=== PATIENT | female | born 1945 | race Caucasian/White ===

== ENCOUNTER 2023-07-09 16:57 | Inpatient (IN) ==
--- NOTE | 2023-07-09 17:28 | Emergency Department Note ---
Impression & Plan Atrial fibrillation with rapid ventricular response, Wheezing, Acute dyspnea ED Provider Note NAME: FREDERICK RUIZ AGE: 77 SEX: F : 1945 ARRIVES VIA: Walk-In INFORMANT: Patient, ED PROVIDER(S): Marcell Zhao MD CHIEF COMPLAINT: Cough, shortness of breath MEDICAL DECISION MAKING: Patient presents with 2 weeks of associated symptoms after treatment at home who presents with worsening shortness of breath and cough. Patient did have wheezing on exam. IV was established blood was obtained along with an EKG troponin chest x-ray bio fire and the patient was treated with IV fluids IV steroids DuoNeb treatment as well as IV magnesium. Patient's blood work shows a leukocytosis of 19 with anemia hemoglobin of 10. The patient has been on steroids. Platelet count elevated 462. Kidney function with a creat of 1.32 unsure as to patient's baseline mild elevation in anion gap and lower bicarb. Patient was noted to be hypocalcemic and the patient was ordered 2 g of calcium. Magnesium low at 1.1 had already been ordered 1 g. Procalcitonin negative. Bio fire positive for enterorhinovirus and chest x-ray does not show any obvious pneumonia. Patient was noted to be in A-fib RVR. No prior history. This may also be contributing to some of the patient's symptoms. Patient was ordered a Cardizem bolus to 15 which did not improve her rates the patient was ordered a subsequent dose of 20 mg which was given in addition to a Cardizem drip. I did speak the on-call hospital service Dr. Escobedo and the patient was admitted to the medicine service. Critical Care: I have personally spent 45 minutes of critical care time in direct management of this patient. This includes bedside care, interpretation of diagnostic studies, and testing, discussion with consultants, patient, and family members, and other require inpatient management activities. This 45 minutes is in excess of all separately billable procedures. Discussion w/ other healthcare providers: Dr. Escobedo inpatient medicine [facility] Prior /Outside records reviewed: I reviewed an outpatient office visit note from July 01, [address] Dhillon. Patient is a known history of type 2 diabetes hypertension GERD thyroid cancer postsurgical hypothyroidism CKD stage III patient was seen due to concern for cough at that time. Differential diagnosis: Reactive airway disease, pneumonia, pneumothorax, COPD, CHF, ACS, pulmonary embolism, musculoskeletal, GERD as well as other pathologies were considered. Diagnostics, as interpreted by me: ECG: Normal sinus rhythm, rate of 88, normal intervals, normal axis no ST elevations. Repeat EKG interpreted by me Laura-hannah with RVR, rate of 158, normal QRS, normal axis no obvious ST elevations, ST depressions in the lateral leads. Cardiac monitoring: An order was placed for continuous cardiac monitoring. The monitor shows a rate of 88 with sinus rhythm. Patient was placed on pulse oximetry Medical decision rules: [id number] score Imaging studies: I informally interpreted the patient's chest x-ray which does not show obvious pneumonia with formal report to follow. HPI: Patient presents due to concern for shortness of breath and cough. The patient states that her symptoms began about 2 weeks ago she was seen by 2 separate outpatient physicians and patient did receive some injection of methylprednisolone. The patient has been trying steroids a course of Augmentin as well as some cough syrup without significant improvement in symptoms. The patient states that she last smoked about 20 years ago and has no formal diagnosis of COPD or emphysema. Patient is never followed up with a manager mission. Patient states that she is short of breath but denies any chest pain. Patient states that her cough is nonproductive. PAST MEDICAL HISTORY: Hypertension, diabetes, GERD, thyroid cancer PAST SURGICAL HISTORY: Thyroidectomy SOCIAL HISTORY: See Below HOME MEDICATIONS: See Below ALLERGIES: See Below VITALS: See Below PHYSICAL EXAMINATION: GENERAL: NAD, non-toxic. EYE EXAM: Normal conjunctiva. PERRL, no anisocoria and EOM's grossly intact w/o pain. OROPHARYNX: Moist mucus membranes, grossly normal dentition. NECK: Supple, no nuchal rigidity, no adenopathy, non-tender. No signs of meningismus. FROM of the neck with good chin to chest and neck extension. No stridor. LUNGS: Clear to auscultation. Normal chest wall mechanics. HEART: NSR, no MRG. ABDOMEN: Abdomen soft, non-tender, no masses, no rebound or guarding. BACK: No CVA TTP. SKIN: No rashes and no bruising. UPPER EXTREMITIES: Upper extremities are grossly normal. LOWER EXTREMITIES: Grossly normal, no edema. NEURO EXAM: A&O x3, cranial nerves II-XII grossly intact, normal speech, moves all 4 extremities. 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 Required: No Beliefs That Will Affect Care: None Current Living Situation: Spouse Other Information That Helps Us Care for You: No Feels Safe at Home: Yes Assistive Devices: Denture - Upper, Denture - Lower and Glasses Allergies Allergies Allergy/AdvReac Type Severity Reaction Status Date / Time bacitracin Allergy Severe Redness of Verified 07/09/23 20:09 Skin Home Meds Home Medications Medication Instructions Recorded Confirmed albuterol sulfate 2.5 mg/3 mL 2.5 mg continuous nebulization TID 07/09/23 07/09/23 (0.083 %) solution for nebulization amlodipine 5 mg tablet 5 mg PO QAM 07/09/23 07/09/23 amoxicillin 875 mg-potassium 1 tab PO AMHS 07/09/23 07/09/23 clavulanate 125 mg tablet benzonatate 100 mg capsule 100 mg PO TID PRN Cough 07/09/23 07/09/23 calcium carbonate 600 mg-vitamin 1 tab PO BID 07/09/23 07/09/23 D3 20 mcg (800 unit) tablet codeine 10 mg-guaifenesin 100 mg/5 5 ml PO Q4 PRN Cough 07/09/23 07/09/23 mL oral liquid diphenhydramine HCl 25 mg tablet 25 mg PO HS 07/09/23 07/09/23 (Allergy) fluticasone propionate 100 1 inh inhalation BID 07/09/23 07/09/23 mcg/actuation blister powder for inhalation (Flovent Diskus) irbesartan 300 mg tablet 300 mg PO QAM 07/09/23 07/09/23 levothyroxine 112 mcg tablet 112 mcg PO DAILYBB 07/09/23 07/09/23 (Synthroid) linaclotide 72 mcg capsule 72 mcg PO DAILYBB 07/09/23 07/09/23 (Linzess) linagliptin 5 mg tablet (Tradjenta) 5 mg PO QAM 07/09/23 07/09/23 metformin 1,000 mg tablet 1,000 mg PO BID 07/09/23 07/09/23 omeprazole 20 mg capsule,delayed 20 mg PO QAM 07/09/23 07/09/23 release piroxicam 20 mg capsule 20 mg PO QAM 07/09/23 07/09/23 prednisone 10 mg tablet 10 mg PO UD 07/09/23 07/09/23 Results & Data (ED) Vital Signs Vital Signs - 24 hr 07/09/23 17:04 07/09/23 17:28 07/09/23 17:28 Temperature 36.7 C Temperature Source Temporal Artery Scan Pulse Rate 91 H Pulse Rate [Apical] 83 Respiratory Rate 18 18 Respiratory Effort / Characteristics Blood Pressure 121/62 Blood Pressure [Left Arm] 142/75 H Blood Pressure Mean 81 Blood Pressure Mean [Left Arm] 97 Pulse Oximetry 96 97 Oxygen Delivery Method Room Air Room Air Room Air Sepsis Recent Fever Within 48 Hours No Sepsis New/Unexplained Change in Mental Status No Sepsis Action Taken by Nursing No Action Required 07/09/23 17:51 07/09/23 18:13 07/09/23 19:00 Temperature Temperature Source Pulse Rate 86 Pulse Rate [Apical] 77 85 Respiratory Rate 14 24 Respiratory Effort / Characteristics Spontaneous Blood Pressure Blood Pressure [Left Arm] 183/85 H Blood Pressure Mean Blood Pressure Mean [Left Arm] 117 Pulse Oximetry 98 100 Oxygen Delivery Method Room Air Aerosol Mask Sepsis Recent Fever Within 48 Hours Sepsis New/Unexplained Change in Mental Status Sepsis Action Taken by Nursing 07/09/23 19:20 07/09/23 19:35 07/09/23 19:50 Temperature Temperature Source Pulse Rate Pulse Rate [Apical] 152 H 158 H 144 H Respiratory Rate 26 H 24 24 Respiratory Effort / Characteristics Blood Pressure Blood Pressure [Left Arm] Blood Pressure Mean Blood Pressure Mean [Left Arm] Pulse Oximetry 96 95 Oxygen Delivery Method Room Air Room Air Sepsis Recent Fever Within 48 Hours Sepsis New/Unexplained Change in Mental Status Sepsis Action Taken by Nursing 07/09/23 20:05 07/09/23 20:20 07/09/23 20:35 Temperature Temperature Source Pulse Rate Pulse Rate [Apical] 162 H 149 H 154 H Respiratory Rate 26 H 24 24 Respiratory Effort / Characteristics Blood Pressure Blood Pressure [Left Arm] 136/109 H 123/78 130/96 Blood Pressure Mean Blood Pressure Mean [Left Arm] 118 93 107 Pulse Oximetry 96 96 96 Oxygen Delivery Method Room Air Room Air Room Air Sepsis Recent Fever Within 48 Hours Sepsis New/Unexplained Change in Mental Status Sepsis Action Taken by [facility] Medications Current Medication List: was personally reviewed by me Laboratory Data Attestation: I reviewed the patient's lab results. 07/09/23 17:18 07/09/23 17:18 Lab Results 07/09/23 07/09/23 07/09/23 Range/Units 17:18 17:18 17:18 WBC 19.24 H (4.8-10.8) K/ul RBC 3.70 L (4.20-5.40) M/uL Hgb 10.1 L (12.0-16.0) g/dl Hct 30.9 L (37.0-47.0) % MCV 83.5 (80.0-100.0) fL MCH 27.3 (25.0-34.0) pg MCHC 32.7 (32.0-36.0) g/dL RDW Std Deviation 48.9 H (36.4-46.3) fL RDW Coeff of Brooke 16.1 H (11.5-14.5) % Plt Count 462 H (130-400) K/uL MPV 9.7 (9.4-12.4) fL Immature Gran % (Auto) 5.0 % Neut % (Auto) 84.0 % Lymph % (Auto) 8.5 % [place] % (Auto) 2.1 % Eos % (Auto) 0.0 % Baso % (Auto) 0.4 % Neut # (Auto) 16.17 H (1.40-6.50) K/uL Lymph # (Auto) 1.63 (1.20-3.40) K/uL [place] # (Auto) 0.40 (0.11-0.59) K/uL Eos # (Auto) 0.00 (0.00-0.50) K/uL Baso # (Auto) 0.07 (0.00-0.20) K/uL Immature Gran # (Auto) 0.97 H (0.01-0.20) K/uL PT 10.9 (9.0-12.0) Seconds INR 1.0 (0.9-1.1) APTT 22.8 (21.0-31.0) Seconds PTT Ratio 0.8 Sodium 139 (136-145) mmol/L Potassium 3.6 (3.5-5.1) mmol/L Chloride 108 H (98-107) mmol/L Carbon Dioxide 17 L (21-32) mmol/L Anion Gap 14 H (3-11) BUN 26 H (6-23) mg/dl Creatinine 1.32 H (0.6-1.2) mg/dl Est Cr Clr Drug Dosing 37.8 ml/min Est GFR ( Amer) 45.6 ml/min Est GFR (Non-Af Amer) 39.4 ml/min BUN/Creatinine Ratio 19.7 (10-20) Glucose 257 H (70-99(Fasting)) mg/dl Calcium 7.7 L (8.6-10.3) mg/dl Magnesium 1.1 L (1.7-2.4) mg/dl Total Bilirubin 0.4 (0.2-1.0) mg/dl AST 31 (13-39) U/L ALT 44 (7-52) U/L Alkaline Phosphatase 85 (34-104) U/L Troponin I High Sens 6.8 (0-14) pg/ml Total Protein 7.4 (6.0-8.3) gm/dl Albumin 4.0 (3.4-5.0) gm/dl Globulin 3.4 (2.5-4.0) gm/dl Albumin/Globulin Ratio 1.2 (0.9-2) Procalcitonin (0-0.5) ng/ml Adenovirus (PCR) (NotDetected) B. pertussis DNA (PCR) (NotDetected) B.parapertussis DNA PCR (NotDetected) C. pneumoniae DNA (PCR) (NotDetected) Coronavirus OC43 (PCR) (NotDetected) Coronavirus HKU1 (PCR) (NotDetected) Coronavirus 229E (PCR) (NotDetected) SARS-CoV-2 (PCR) (NotDetected) Coronavirus NL63 (PCR) (NotDetected) Human Metapneumovir PCR (NotDetected) Influenza Type A (PCR) (NotDetected) Influenza Type B (PCR) (NotDetected) M. pneumoniae (PCR) (NotDetected) Parainfluenza 1 (PCR) (NotDetected) Parainfluenza 2 (PCR) (NotDetected) Parainfluenza 3 (PCR) (NotDetected) Parainfluenza 4 (PCR) (NotDetected) RSV (PCR) (NotDetected) Entero/Rhino (PCR) (NotDetected) 07/09/23 07/09/23 Range/Units 17:19 19:35 WBC (4.8-10.8) K/ul RBC (4.20-5.40) M/uL Hgb (12.0-16.0) g/dl Hct (37.0-47.0) % MCV (80.0-100.0) fL MCH (25.0-34.0) pg MCHC (32.0-36.0) g/dL RDW Std Deviation (36.4-46.3) fL RDW Coeff of Brooke (11.5-14.5) % Plt Count (130-400) K/uL MPV (9.4-12.4) fL Immature Gran % (Auto) % Neut % (Auto) % Lymph % (Auto) % [place] % (Auto) % Eos % (Auto) % Baso % (Auto) % Neut # (Auto) (1.40-6.50) K/uL Lymph # (Auto) (1.20-3.40) K/uL [place] # (Auto) (0.11-0.59) K/uL Eos # (Auto) (0.00-0.50) K/uL Baso # (Auto) (0.00-0.20) K/uL Immature Gran # (Auto) (0.01-0.20) K/uL PT (9.0-12.0) Seconds INR (0.9-1.1) APTT (21.0-31.0) Seconds PTT Ratio Sodium (136-145) mmol/L Potassium (3.5-5.1) mmol/L Chloride (98-107) mmol/L Carbon Dioxide (21-32) mmol/L Anion Gap (3-11) BUN (6-23) mg/dl Creatinine (0.6-1.2) mg/dl Est Cr Clr Drug Dosing ml/min Est GFR ( Amer) ml/min Est GFR (Non-Af Amer) ml/min BUN/Creatinine Ratio (10-20) Glucose (70-99(Fasting)) mg/dl Calcium (8.6-10.3) mg/dl Magnesium (1.7-2.4) mg/dl Total Bilirubin (0.2-1.0) mg/dl AST (13-39) U/L ALT (7-52) U/L Alkaline Phosphatase (34-104) U/L Troponin I High Sens (0-14) pg/ml Total Protein (6.0-8.3) gm/dl Albumin (3.4-5.0) gm/dl Globulin (2.5-4.0) gm/dl Albumin/Globulin Ratio (0.9-2) Procalcitonin < 0.05 (0-0.5) ng/ml Adenovirus (PCR) Not Detected (NotDetected) B. pertussis DNA (PCR) Not Detected (NotDetected) B.parapertussis DNA PCR Not Detected (NotDetected) C. pneumoniae DNA (PCR) Not Detected (NotDetected) Coronavirus OC43 (PCR) Not Detected (NotDetected) Coronavirus HKU1 (PCR) Not Detected (NotDetected) Coronavirus 229E (PCR) Not Detected (NotDetected) SARS-CoV-2 (PCR) Not Detected (NotDetected) Coronavirus NL63 (PCR) Not Detected (NotDetected) Human Metapneumovir PCR Not Detected (NotDetected) Influenza Type A (PCR) Not Detected (NotDetected) Influenza Type B (PCR) Not Detected (NotDetected) M. pneumoniae (PCR) Not Detected (NotDetected) Parainfluenza 1 (PCR) Not Detected (NotDetected) Parainfluenza 2 (PCR) Not Detected (NotDetected) Parainfluenza 3 (PCR) Not Detected (NotDetected) Parainfluenza 4 (PCR) Not Detected (NotDetected) RSV (PCR) Not Detected (NotDetected) Entero/Rhino (PCR) DETECTED A* (NotDetected) Administered Medications Benzonatate (Benzonatate 100 Mg Capsule) 100 mg PO TID SCOTT Stop: 08/08/23 22:10 Last Admin: 07/09/23 23:00 Dose: 100 mg Documented By: CLIFFORD Diphenhydramine HCl (Diphenhydramine Capsule 25 Mg Cap) 25 mg PO HS SCOTT Stop: 08/08/23 22:10 Last Admin: 07/09/23 22:59 Dose: 25 mg Documented By: CLIFFORD Doxycycline Hyclate (Doxycycline Hyclate 100 Mg Cap) 100 mg PO BID@0600,1800 SCOTT Stop: 07/16/23 22:10 Last Admin: 07/09/23 22:59 Dose: 100 mg Documented By: CLIFFORD Heparin Sodium/Dextrose (Heparin Sodium/Dextrose) 25,000 units in 500 mls @ 23 mls/hr IV .[id number] SCOTT; Protocol Stop: 08/08/23 19:44 Last Admin: 07/09/23 20:14 Dose: 1,150 units/hr, 23 mls/hr Documented By: MATEUSZ Co-signed By: PANCHO Diltiazem HCl 125 mg/ Dextrose 125 mls @ 15 mls/hr IV .[id number] SCOTT; Protocol Stop: 08/08/23 20:14 Last Titration: 07/09/23 22:20 Dose: 15 mg/hr, 15 mls/hr Documented By: CLIFFORD Co-signed By: ARR Titration: 07/09/23 21:20 Dose: 10 mg/hr, 10 mls/hr Documented By: MATEUSZ Co-signed By: CHUCKY Admin: 07/09/23 20:20 Dose: 5 mg/hr, 5 mls/hr Documented By: PANCHO Co-signed By: CHUCKY Magnesium Sulfate/Dextrose (Magnesium Sulfate / D5w) 1 gm in 100 mls @ 50 mls/hr IV Q2H SCOTT Stop: 07/10/23 00:29 Last Admin: 07/09/23 22:30 Dose: 50 mls/hr Documented By: Infusion: 07/09/23 22:30 Dose: 50 mls/hr Documented By: Admin: 07/09/23 20:32 Dose: 50 mls/hr Documented By: MATEUSZ Sodium Chloride (Nss) 1,000 mls @ 75 mls/hr IV .[id number] [facility] Stop: 07/10/23 11:30 Last Admin: 07/09/23 22:41 Dose: 75 mls/hr Documented By: CLIFFORD Insulin Aspart (Insulin Aspart Per Unit Charge) 0 units SC ACHS SCOTT Stop: 08/08/23 22:10 Last Admin: 07/09/23 23:03 Dose: 6 units Documented By: CLIFFORD Co-signed By: JAVIER Ipratropium Friant (Ipratropium Friant Neb Soln 0.02% 2.5 Ml Vial) 0.5 mg INH QIDR SCOTT Stop: 08/08/23 22:10 Last Admin: 07/09/23 23:06 Dose: 0.5 mg Documented By: CS Levalbuterol HCl (Levalbuterol 1.25 Mg/3 Ml Neb) 1.25 mg NEB QIDR SCOTT Stop: 08/08/23 22:10 Last Admin: 07/09/23 23:06 Dose: 1.25 mg Documented By: CS Discontinued Medications Albuterol (Albut/Ipratrop 3mg/0.5mg Neb 3 Ml Vial) 12 ml INH ONE STA Stop: 07/09/23 17:44 Last Admin: 07/09/23 18:12 Dose: 12 ml Documented By: SORAIDA Diltiazem HCl (Diltiazem Hcl 5 Mg/Ml 5 Ml Vial) 15 mg IV NOW STA Stop: 07/09/23 19:25 Last Admin: 07/09/23 19:29 Dose: 15 mg Documented By: MATEUSZ Co-signed By: PANCHO Diltiazem HCl (Diltiazem Hcl 5 Mg/Ml 5 Ml Vial) 20 mg IV NOW STA Stop: 07/09/23 20:03 Last Admin: 07/09/23 20:13 Dose: 20 mg Documented By: MATEUSZ Co-signed By: PANCHO Heparin Sodium/Dextrose (Heparin Iv Adult Wt-Based Standard *No* Bolus Protocol) 1 each IV ONE STA; Protocol Stop: 07/09/23 19:27 Last Admin: 07/09/23 22:31 Dose: Not Given Documented By: CLIFFORD Sodium Chloride (Nss) 500 mls @ 999 mls/hr IV .Q31M STA Stop: 07/09/23 18:13 Last Infusion: 07/09/23 20:37 Dose: 999 mls/hr Documented By: Admin: 07/09/23 19:31 Dose: 999 mls/hr Documented By: MAETUSZ Magnesium Sulfate/Dextrose (Magnesium Sulfate / D5w) 1 gm in 100 mls @ 100 mls/hr IV NOW STA Stop: 07/09/23 18:43 Last Infusion: 07/09/23 19:26 Dose: 100 mls/hr Documented By: Admin: 07/09/23 18:17 Dose: 100 mls/hr Documented By: HARVINDER Sodium Chloride (Nss) 1,000 mls @ 999 mls/hr IV .Q1H1M ONE Stop: 07/09/23 19:12 Last Infusion: 07/09/23 20:37 Dose: 999 mls/hr Documented By: Admin: 07/09/23 18:18 Dose: 999 mls/hr Documented By: HARVINDER Calcium Gluconate () 1,000 mg in 60 mls @ 240 mls/hr IV Q15M SCOTT Stop: 07/09/23 18:44 Last Infusion: 07/09/23 19:25 Dose: 240 mls/hr Documented By: Admin: 07/09/23 18:42 Dose: 240 mls/hr Documented By: Infusion: 07/09/23 18:32 Dose: 240 mls/hr Documented By: Admin: 07/09/23 18:17 Dose: 240 mls/hr Documented By: HARVINDER Methylprednisolone (Methylprednisolone 125 Mg/2 Ml Vial) 125 mg IV NOW STA Stop: 07/09/23 17:44 Last Admin: 07/09/23 18:17 Dose: 125 mg Documented By: HARVINDER Miscellaneous (Stat Iv Infusion Titration Per Protocol) 1 each N/A NOW STA Stop: 07/09/23 20:03 Last Admin: 07/09/23 22:41 Dose: 1 each Documented By: CLIFFORD Imaging Data Radiologist's Impression: Chest X-Ray 07/09/23 17:07 XR chest 1V not portable HISTORY: 77 years-old Female Chest pain, nonspecific COMPARISON: None TECHNIQUE: AP view of the chest FINDINGS: Cardiac silhouette is large. No pneumothorax, pleural effusion or airspace consolidation. Likely chronic angulated displaced mid left clavicular fracture. Degenerative changes of the shoulders and spine. IMPRESSION: No acute process of the chest. ACT 112: Negative or not required by law. The above report was generated using voice recognition software. It may contain grammatical, syntax or spelling errors. Electronically signed by: Vin Baltazar M.D. 07/09/2023 5:50 PM Discharge Plan Visit Data Chief Complaint: Shortness of Breath/Dyspnea Stated Complaint: REF BY PCP, SOB, COUGH, BACK PAIN ED Provider: Marcell Zhao Discharge Problem: Atrial fibrillation with rapid ventricular response, Wheezing, Acute dyspnea Patient Disposition: Admitted As Inpatient Discharge Instructions Interventions: ED Discharge Assessment Last Done: 07/09/23 21:52
[2023-07-09 17:37] LABS: Basophils # (auto) 0.07 K/uL (0.00-0.20); Basophils % (auto) 0.4 %; Hematocrit (blood only) 30.9 % (37.0-47.0); Hemoglobin 10.1 g/dl (12.0-16.0); Immature Granulocytes # (auto) 0.97 K/uL (0.01-0.20); Lymphocytes # (auto) 1.63 K/uL (1.20-3.40); Lymphocytes % (auto) 8.5 %; Mean Corpuscular Hemoglobin 27.3 pg (25.0-34.0); Mean Corpuscular Hgb Conc 32.7 g/dL (32.0-36.0); Mean Corpuscular Volume 83.5 fL (80.0-100.0); Mean Platelet Volume 9.7 fL (9.4-12.4); Monocytes % (auto) 2.1 %; Neutrophils # (auto) 16.17 K/uL (1.40-6.50); Platelet Count 462 K/uL (130-400); RDW Coefficient of Variation 16.1 % (11.5-14.5); RDW Standard Deviation 48.9 fL (36.4-46.3); White Blood Count 19.24 K/ul (4.8-10.8)
[2023-07-09] MEDS ORDERED: SODIUM CHLORIDE 0.9% 500 ML IV STA (17:43)
[2023-07-09] MEDS ORDERED: methylPREDNISolone 125 MG/2 ML VIAL IV STA (17:43)
[2023-07-09] MEDS ORDERED: ALBUT/IPRATROP 3MG/0.5MG NEB 3 ML VIAL INH STA (17:43)
[2023-07-09] MEDS ORDERED: MAGNESIUM SULFATE / D5W 1 GM/100 ML BAG IV STA (17:44)
[2023-07-09 17:47] LABS: Partial Thromboplastin Ratio 0.8; Partial Thromboplastin Time 22.8 Seconds (21.0-31.0); Prothrombin Time 10.9 Seconds (9.0-12.0)
--- NOTE | 2023-07-09 17:51 | XRay Report ---
XR chest 1V not portable HISTORY: 77 years-old Female Chest pain, nonspecific COMPARISON: None TECHNIQUE: AP view of the chest FINDINGS: Cardiac silhouette is large. No pneumothorax, pleural effusion or airspace consolidation. Likely watershed tender yordan angulated displaced mid left clavicular fracture. Degenerative changes of the shoulders and spine . IMPRESSION: No acute process of the chest. ACT 112: Negative or not required by law. The above report was generated using voice recognition software. It may contain grammatical, syntax o r spelling errors. Electronically signed by: Vin Baltazar M.D. 07/09/2023 5:50 PM
[2023-07-09 17:55] LABS: Albumin Globulin Ratio 1.2 (0.9-2); BUN Creatinine Ratio 19.7 (10-20); Bilirubin,Total 0.4 mg/dl (0.2-1.0); Calcium 7.7 mg/dl (8.6-10.3); Creatinine Clr Calc Pharmacy 37.8 ml/min; Est GFR (African American) 45.6 ml/min; Est GFR (Non-African American) 39.4 ml/min; Globulin 3.4 gm/dl (2.5-4.0); Potassium 3.6 mmol/L (3.5-5.1); Total Protein 7.4 gm/dl (6.0-8.3)
[2023-07-09 18:01] LABS: Troponin I High Sensitivity 6.8 pg/ml (0-14)
[2023-07-09] MEDS ORDERED: SODIUM CHLORIDE 0.9% 1,000 ML IV ONE (18:12)
[2023-07-09] MEDS: CALCIUM GLUCONATE 1,000 MG/60 ML BAG IV SCH ×2 (18:17→18:42)
[2023-07-09 18:27] LABS: Magnesium 1.1 mg/dl (1.7-2.4)
[2023-07-09] MEDS ORDERED: dilTIAZem HCl 5 MG/ML 5 ML VIAL IV STA ×2 (19:24→20:02)
[2023-07-09] MEDS ORDERED: Heparin IV Adult Wt-Based Standard *NO* Bolus Protocol IV STA (19:26)
[2023-07-09] MEDS ORDERED: STAT IV Infusion **Titration per Protocol STA (20:02)
[2023-07-09] MEDS: HEPARIN SODIUM/DEXTROSE 25,000 UNITS/500 ML BAG IV SCH (20:14)
[2023-07-09] MEDS: dilTIAZem HCL 125 MG in DEXTROSE 5% 100 ML IV SCH (20:20)
[2023-07-09] MEDS: MAGNESIUM SULFATE / D5W 1 GM/100 ML BAG IV SCH ×2 (20:32→22:30)
[2023-07-09 20:36] LABS: Adenovirus PCR Not Detected (NotDetected); Bordetella parapertussis PCR Not Detected (NotDetected); Bordetella pertussis PCR Not Detected (NotDetected); Chlamydia pneumoniae PCR Not Detected (NotDetected); Coronavirus 229E PCR Not Detected (NotDetected); Coronavirus CoV-2 (COVID19)PCR Not Detected (NotDetected); Coronavirus HKU1 PCR Not Detected (NotDetected); Coronavirus NL63 PCR Not Detected (NotDetected); Coronavirus OC43PCR Not Detected (NotDetected); Human Metapneumovirus PCR Not Detected (NotDetected); Influenza A PCR Not Detected (NotDetected); Influenza B PCR Not Detected (NotDetected); Mycoplasma pneumoniae PCR Not Detected (NotDetected); Parainfluenza Virus 1 PCR Not Detected (NotDetected); Parainfluenza Virus 2 PCR Not Detected (NotDetected); Parainfluenza Virus 3 PCR Not Detected (NotDetected); Parainfluenza Virus 4 PCR Not Detected (NotDetected); Respiratory Syncytial VirusPCR Not Detected (NotDetected)
[2023-07-09 20:39] LABS: Rhinovirus/Enterovirus PCR DETECTED (NotDetected)
--- NOTE | 2023-07-09 20:55 | History & Physical Report ---
Date of Service July 09, 2023 Assessment & Plan (1) COPD exacerbation: Plan: 77-year-old female with past medical history significant for type 2 diabetes, postprocedural hypothyroidism, postprocedural hypoparathyroidism, mixed hyperlipidemia, hypertension ,GERD ,chronic kidney disease stage III, history of peptic ulcer disease presents with shortness of breath and cough and also found to be in rapid A-fib. COPD exacerbation Acute bronchitis with entero/rhinovirus Continue with IV Solu-Medrol 40 mg 3 times daily nebs [id number] and as needed P.o. doxycycline Close monitor Rapid A-fib New onset On Cardizem drip IV heparin Serial cardiac enzymes and echocardiogram Monitor on telemetry Cardiac consult in a.m. History of type 2 diabetes Holding home p.o. medications Insulin sliding scale Monitor the blood sugars while patient is on IV steroids Hypothyroidism On Synthyroid We will follow TSH Hypertension On amlodipine, Will hold irbesartan for YVONNE We will monitor YVONNE on CKD stage III Presented with creatinine 1.3 Baseline creatinine 1-1.2 Holding losartan Gentle fluids Follow labs in a.m. Leukocytosis Procalcitonin negative We will follow repeat labs Anemia Hemoglobin 10.1 We will follow stool for Hemoccult Iron studies DVT prophylaxis on IV heparin Disposition telemetry floor Full code History of Present Illness Chief Complaint: Shortness of breath, rapid A-fib Primary Care Provider: Alfreda Rea DO 77-year-old female with past medical history significant for type 2 diabetes, postprocedural hypothyroidism, postprocedural hypoparathyroidism, mixed hyperlipidemia, hypertension ,GERD ,chronic kidney disease stage III, history of peptic ulcer disease presents with shortness of breath and cough and also found to be in rapid A-fib. Patient is having cough going for last 2 weeks and had outpatient steroids and antibiotics but is not getting better and came to the ER. Having dry cough. Denies any chest pain. Denies any palpitations. Denies fevers. Appetite is okay. No difficulty swallowing. No nausea vomiting. No abdominal pain. No diarrhea. No blood in the stools or black stools. No hematuria. Normal bladder movements. Has some headache. No blurred visions. Has some sore throat from dryness. Past medical history. As mentioned above Past surgical history. EGD. Removal of thyroid gland. Cholecystectomy. Total abdominal hysterectomy with bilateral salpingo-oophorectomy. Social history. Quit smoking in 1995. Alcohol socially. No drug use Family history. Brother had pacemaker. Father had lung cancer. Mother had hypertension, dementia. Sister had stroke Allergies Allergy/AdvReac Type Severity Reaction Status Date / Time bacitracin Allergy Severe Redness of Verified 07/09/23 20:09 Skin Home Medications Medication Instructions Recorded Confirmed Type albuterol sulfate 2.5 mg/3 mL 2.5 mg continuous nebulization TID 07/09/23 07/09/23 History (0.083 %) solution for nebulization amlodipine 5 mg tablet 5 mg PO QAM 07/09/23 07/09/23 History amoxicillin 875 mg-potassium 1 tab PO AMHS 07/09/23 07/09/23 History clavulanate 125 mg tablet benzonatate 100 mg capsule 100 mg PO TID PRN Cough 07/09/23 07/09/23 History calcium carbonate 600 mg-vitamin 1 tab PO BID 07/09/23 07/09/23 History D3 20 mcg (800 unit) tablet codeine 10 mg-guaifenesin 100 mg/5 5 ml PO Q4 PRN Cough 07/09/23 07/09/23 History mL oral liquid diphenhydramine HCl 25 mg tablet 25 mg PO HS 07/09/23 07/09/23 History (Allergy) fluticasone propionate 100 1 inh inhalation BID 07/09/23 07/09/23 History mcg/actuation blister powder for inhalation (Flovent Diskus) irbesartan 300 mg tablet 300 mg PO QAM 07/09/23 07/09/23 History levothyroxine 112 mcg tablet 112 mcg PO DAILYBB 07/09/23 07/09/23 History (Synthroid) linaclotide 72 mcg capsule 72 mcg PO DAILYBB 07/09/23 07/09/23 History (Linzess) linagliptin 5 mg tablet (Tradjenta) 5 mg PO QAM 07/09/23 07/09/23 History metformin 1,000 mg tablet 1,000 mg PO BID 07/09/23 07/09/23 History omeprazole 20 mg capsule,delayed 20 mg PO QAM 07/09/23 07/09/23 History release piroxicam 20 mg capsule 20 mg PO QAM 07/09/23 07/09/23 History prednisone 10 mg tablet 10 mg PO UD 07/09/23 07/09/23 History Past Med/Surg History Social History Smoking Status: Former smoker Do You Dip or Chew Tobacco: No; Tobacco Cessation Education Requested by Patient: No Hx Alcohol Use: Yes Hx Substance Use: No Preferred Language: Nepali 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: Effective Wheel Setter Required: No Beliefs That Will Affect Care: None Current Living Situation: Spouse Other Information That Helps Us Care for You: No Feels Safe at Home: Yes Assistive Devices: Denture - Upper, Denture - Lower and Glasses Review of Systems Review of Systems: All systems reviewed & are unremarkable except as noted in HPI & below Physical Exam Physical Exam: General- not in distress. Head- atraumatic Eyes- PERRL. ENT- oropharynx clear Neck- supple, no JVD. Lungs- clear to auscultation,mild b/l rhonchi Heart- irregular rhythm; tachycardia, no murmur, no gallop. Abdomen- normal bowel sounds, soft, nontender, no distension. Extremities- no pretibial edema, no erythema seen. Neuro- alert, oriented x 3; PERRL, no facial palsy; no dysarthria; moves extremities. Skin- warm & dry Results & Data Results & Data Vital Signs (Past 12 Hours) Vital Signs Temp Pulse Pulse Resp BP BP Pulse Ox 07/09/23 20:50 147 H 22 115/76 95 07/09/23 20:35 154 H 24 130/96 96 07/09/23 20:20 149 H 24 123/78 96 07/09/23 20:05 162 H 26 H 136/109 H 96 07/09/23 19:50 144 H 24 95 07/09/23 19:35 158 H 24 96 07/09/23 19:20 152 H 26 H 07/09/23 19:00 85 24 183/85 H 100 07/09/23 18:13 77 14 98 07/09/23 17:51 86 07/09/23 17:28 83 18 142/75 H 97 07/09/23 17:28 07/09/23 17:04 36.7 C 91 H 18 121/62 96 O2 Del Method 07/09/23 20:50 Room Air 07/09/23 20:35 Room Air 07/09/23 20:20 Room Air 07/09/23 20:05 Room Air 07/09/23 19:50 Room Air 07/09/23 19:35 Room Air 07/09/23 19:20 07/09/23 19:00 Aerosol Mask 07/09/23 18:13 Room Air 07/09/23 17:51 07/09/23 17:28 Room Air 07/09/23 17:28 Room Air 07/09/23 17:04 Room Air Diagnostic Findings Laboratory Results WBC 19.24 K/ul (4.8-10.8) H 07/09/23 17:18 RBC 3.70 M/uL (4.20-5.40) L 07/09/23 17:18 Hgb 10.1 g/dl (12.0-16.0) L 07/09/23 17:18 Hct 30.9 % (37.0-47.0) L 07/09/23 17:18 MCV 83.5 fL (80.0-100.0) 07/09/23 17:18 MCH 27.3 pg (25.0-34.0) 07/09/23 17:18 MCHC 32.7 g/dL (32.0-36.0) 07/09/23 17:18 RDW Std Deviation 48.9 fL (36.4-46.3) H 07/09/23 17:18 RDW Coeff of Brooke 16.1 % (11.5-14.5) H 07/09/23 17:18 Plt Count 462 K/uL (130-400) H 07/09/23 17:18 MPV 9.7 fL (9.4-12.4) 07/09/23 17:18 Immature Gran % (Auto) 5.0 % 07/09/23 17:18 Neut % (Auto) 84.0 % 07/09/23 17:18 Lymph % (Auto) 8.5 % 07/09/23 17:18 [place] % (Auto) 2.1 % 07/09/23 17:18 Eos % (Auto) 0.0 % 07/09/23 17:18 Baso % (Auto) 0.4 % 07/09/23 17:18 Neut # (Auto) 16.17 K/uL (1.40-6.50) H 07/09/23 17:18 Lymph # (Auto) 1.63 K/uL (1.20-3.40) 07/09/23 17:18 [place] # (Auto) 0.40 K/uL (0.11-0.59) 07/09/23 17:18 Eos # (Auto) 0.00 K/uL (0.00-0.50) 07/09/23 17:18 Baso # (Auto) 0.07 K/uL (0.00-0.20) 07/09/23 17:18 Immature Gran # (Auto) 0.97 K/uL (0.01-0.20) H 07/09/23 17:18 PT 10.9 Seconds (9.0-12.0) 07/09/23 17:18 INR 1.0 (0.9-1.1) 07/09/23 17:18 APTT 22.8 Seconds (21.0-31.0) 07/09/23 17:18 PTT Ratio 0.8 07/09/23 17:18 Sodium 139 mmol/L (136-145) 07/09/23 17:18 Potassium 3.6 mmol/L (3.5-5.1) 07/09/23 17:18 Chloride 108 mmol/L (98-107) H 07/09/23 17:18 Carbon Dioxide 17 mmol/L (21-32) L 07/09/23 17:18 Anion Gap 14 (3-11) H 07/09/23 17:18 BUN 26 mg/dl (6-23) H 07/09/23 17:18 Creatinine 1.32 mg/dl (0.6-1.2) H 07/09/23 17:18 Est Cr Clr Drug Dosing 37.8 ml/min 07/09/23 17:18 Est GFR ( Amer) 45.6 ml/min 07/09/23 17:18 Est GFR (Non-Af Amer) 39.4 ml/min 07/09/23 17:18 BUN/Creatinine Ratio 19.7 (10-20) 07/09/23 17:18 Glucose 257 mg/dl (70-99(Fasting)) H 07/09/23 17:18 Calcium 7.7 mg/dl (8.6-10.3) L 07/09/23 17:18 Magnesium 1.1 mg/dl (1.7-2.4) L 07/09/23 17:18 Total Bilirubin 0.4 mg/dl (0.2-1.0) 07/09/23 17:18 AST 31 U/L (13-39) 07/09/23 17:18 ALT 44 U/L (7-52) 07/09/23 17:18 Alkaline Phosphatase 85 U/L (34-104) 07/09/23 17:18 Troponin I High Sens 6.8 pg/ml (0-14) 07/09/23 17:18 Total Protein 7.4 gm/dl (6.0-8.3) 07/09/23 17:18 Albumin 4.0 gm/dl (3.4-5.0) 07/09/23 17:18 Globulin 3.4 gm/dl (2.5-4.0) 07/09/23 17:18 Albumin/Globulin Ratio 1.2 (0.9-2) 07/09/23 17:18 Procalcitonin < 0.05 ng/ml (0-0.5) 07/09/23 17:19 Adenovirus (PCR) Not Detected (NotDetected) 07/09/23 19:35 B. pertussis DNA (PCR) Not Detected (NotDetected) 07/09/23 19:35 B.parapertussis DNA PCR Not Detected (NotDetected) 07/09/23 19:35 C. pneumoniae DNA (PCR) Not Detected (NotDetected) 07/09/23 19:35 Coronavirus OC43 (PCR) Not Detected (NotDetected) 07/09/23 19:35 Coronavirus HKU1 (PCR) Not Detected (NotDetected) 07/09/23 19:35 Coronavirus 229E (PCR) Not Detected (NotDetected) 07/09/23 19:35 SARS-CoV-2 (PCR) Not Detected (NotDetected) 07/09/23 19:35 Coronavirus NL63 (PCR) Not Detected (NotDetected) 07/09/23 19:35 Human Metapneumovir PCR Not Detected (NotDetected) 07/09/23 19:35 Influenza Type A (PCR) Not Detected (NotDetected) 07/09/23 19:35 Influenza Type B (PCR) Not Detected (NotDetected) 07/09/23 19:35 M. pneumoniae (PCR) Not Detected (NotDetected) 07/09/23 19:35 Parainfluenza 1 (PCR) Not Detected (NotDetected) 07/09/23 19:35 Parainfluenza 2 (PCR) Not Detected (NotDetected) 07/09/23 19:35 Parainfluenza 3 (PCR) Not Detected (NotDetected) 07/09/23 19:35 Parainfluenza 4 (PCR) Not Detected (NotDetected) 07/09/23 19:35 RSV (PCR) Not Detected (NotDetected) 07/09/23 19:35 Entero/Rhino (PCR) DETECTED (NotDetected) A* 07/09/23 19:35 Impressions Chest X-Ray 07/09/23 17:07 XR chest 1V not portable HISTORY: 77 years-old Female Chest pain, nonspecific COMPARISON: None TECHNIQUE: AP view of the chest FINDINGS: Cardiac silhouette is large. No pneumothorax, pleural effusion or airspace con solidation. Likely chronic angulated displaced mid left clavicular fracture. Degenerative changes of the shoulders and spine. IMPRESSION: No acute process of the chest. ACT 112: Negative or not required by law. The above report was generated using voice recognition software. It may contain grammatical, syntax or spelling errors. Electronically signed by: Vin Baltazar M.D. 07/09/2023 5:50 PM ECG Additional Comments: ECG. Atrial fibrillation with rapid ventricle response rate of 158. ST depress ion in anterolateral leads Code Status & VTE Plan VTE Prophylaxis Plan VTE Prophylaxis will be ordered: Yes
[2023-07-09] MEDS ORDERED: GLUCOSE 40% GEL 15 GM TUBE PO PRN (22:11)
[2023-07-09] MEDS ORDERED: GLUCOSE 10 TAB/TUBE PO PRN (22:11)
[2023-07-09] MEDS ORDERED: guaiFENesin/CODEINE 100MG/10MG 5ML UDC PO PRN (22:11)
[2023-07-09] MEDS ORDERED: LEVALBUTEROL 1.25 MG/3 ML NEB NEB PRN (22:11)
[2023-07-09] MEDS ORDERED: DEXTROSE 50% 50 ML SYRINGE IV PRN (22:11)
[2023-07-09] MEDS ORDERED: SODIUM CHLORIDE 0.9% 1,000 ML IV SCH (22:11)
[2023-07-09] MEDS ORDERED: CARBOHYDRATES FOR HYPOGLYCEMIA PO PRN (22:11)
[2023-07-09] MEDS ORDERED: ACETAMINOPHEN 325 MG TAB PO PRN (22:11)
[2023-07-09] MEDS ORDERED: POLYETHYLENE (MIRALAX) 17 GM PACK PO PRN (22:11)
[2023-07-09] MEDS ORDERED: XOPENEX/ATROVENT 1.25mg/0.5MG NEB COMBO NEB SCH (22:11)
[2023-07-09] MEDS ORDERED: diphenhydrAMINE Capsule 25 MG CAP PO SCH (22:11)
[2023-07-09] MEDS ORDERED: NITROGLYCERIN SL 0.4 MG/TAB TAB SL PRN (22:11)
[2023-07-09] MEDS ORDERED: GLUCAGON FOR INJ 1 MG VIAL SQ PRN (22:11)
[2023-07-09] MEDS: DOXYCYCLINE HYCLATE 100 MG CAP PO SCH (22:59)
[2023-07-09] MEDS: BENZONATATE 100 MG CAPSULE PO SCH (23:00)
[2023-07-09] MEDS: INSULIN ASPART PER UNIT CHARGE SC SCH (23:03)
[2023-07-09] MEDS: IPRATROPIUM BROMIDE NEB SOLN 0.02% 2.5 ML VIAL INH SCH (23:06)
[2023-07-09] MEDS: LEVALBUTEROL 1.25 MG/3 ML NEB NEB SCH (23:06)
[2023-07-09] MEDS ORDERED: METOPROLOL TARTRATE 1 MG/ML VIAL IV STA (23:33)
[2023-07-10 03:03] LABS: Hemoglobin 9.3 g/dl (12.0-16.0); Mean Corpuscular Hgb Conc 33.2 g/dL (32.0-36.0); Mean Corpuscular Volume 81.2 fL (80.0-100.0); Mean Platelet Volume 9.6 fL (9.4-12.4); Nucleated RBC # (auto) 0.02 K/uL (0.00-0.12); Nucleated RBC % (auto) 0.1 %; Platelet Count 433 K/uL (130-400); RDW Coefficient of Variation 16.5 % (11.5-14.5); RDW Standard Deviation 48.5 fL (36.4-46.3); Red Blood Count 3.45 M/uL (4.20-5.40); White Blood Count 20.63 K/ul (4.8-10.8)
[2023-07-10 03:23] LABS: Partial Thromboplastin Ratio 1.6
[2023-07-10 03:24] LABS: BUN Creatinine Ratio 19.2 (10-20); Calcium 7.7 mg/dl (8.6-10.3); Creatinine Clr Calc Pharmacy 41.2 ml/min; Est GFR (African American) 51.2 ml/min; Est GFR (Non-African American) 44.2 ml/min; Magnesium 2.3 mg/dl (1.7-2.4); Partial Thromboplastin Time 46.4 Seconds (21.0-31.0); Potassium 3.6 mmol/L (3.5-5.1)
[2023-07-10 03:46] LABS: Basophils # (auto) 0.07 K/uL (0.00-0.20); Basophils % (auto) 0.3 %; Immature Granulocytes # (auto) 1.11 K/uL (0.01-0.20); Immature Granulocytes % (auto) 5.4 %; Lymphocytes # (auto) 1.47 K/uL (1.20-3.40); Lymphocytes % (auto) 7.1 %; Monocytes # (auto) 0.31 K/uL (0.11-0.59); Monocytes % (auto) 1.5 %; Neutrophils # (auto) 17.67 K/uL (1.40-6.50); Neutrophils % (auto) 85.7 %
[2023-07-10] MEDS: dilTIAZem HCL 125 MG in DEXTROSE 5% 100 ML IV SCH ×3 (05:02→17:14)
[2023-07-10 05:12] LABS: Folate (Folic Acid),Ser orPlas 9.28 ng/ml (>5.38)
[2023-07-10] MEDS: LEVOTHYROXINE SODIUM 112 MCG TABLET PO SCH (05:30)
[2023-07-10] MEDS: linaCLOtide 72 MCG CAPSULE PO SCH (05:30)
[2023-07-10] MEDS: DOXYCYCLINE HYCLATE 100 MG CAP PO SCH (05:30)
[2023-07-10] MEDS ORDERED: methylPREDNISolone 40 MG in SYRINGE 0 ML IV SCH (06:00)
--- NOTE | 2023-07-10 07:04 | Electrocardiogram Report ---
Test Reason : Blood Pressure : / mmHG Vent. Rate : 088 BPM Atrial Rate : 088 BPM P-R Int : 148 ms QRS Dur : 078 ms QT Int : 376 ms P-R-T Axes : 054 010 042 degrees QTc Int : 454 ms Normal sinus rhythm Normal ECG No previous ECGs available Confirmed by Lucien Coyle ([id number]) on 07/10/2023 7:03:34 AM Referred By: REFERRED SELF Confirmed By:Valentín Coyle
[2023-07-10] MEDS: IPRATROPIUM BROMIDE NEB SOLN 0.02% 2.5 ML VIAL INH SCH ×2 (07:11→11:03)
[2023-07-10] MEDS: LEVALBUTEROL 1.25 MG/3 ML NEB NEB SCH ×2 (07:11→11:03)
[2023-07-10 08:01] LABS: Partial Thromboplastin Ratio 2.2
[2023-07-10 08:03] LABS: Partial Thromboplastin Time 62.3 Seconds (21.0-31.0)
[2023-07-10 08:16] LABS: Thyroid Stimulating Hormone 0.096 uIu/ml (0.300-4.500)
[2023-07-10] MEDS: CALCIUM 600MG + VIT D 400 IU TAB PO SCH ×2 (08:27→20:35)
[2023-07-10] MEDS: LOSARTAN POTASSIUM 50 MG TAB PO SCH (08:27)
[2023-07-10] MEDS: BENZONATATE 100 MG CAPSULE PO SCH ×3 (08:27→20:34)
[2023-07-10] MEDS: PANTOprazole 40 MG TAB PO SCH (08:27)
[2023-07-10] MEDS: FLUTICASONE FUROATE 100MCG 14 PUFFS/INHALER INH SCH (08:28)
[2023-07-10] MEDS: INSULIN ASPART PER UNIT CHARGE SC SCH ×4 (08:33→20:46)
--- NOTE | 2023-07-10 08:40 | Hospitalist Progress Note ---
Date of Service July 10, 2023 Assessment & Plan (1) COPD exacerbation: Plan: 77-year-old female with past medical history significant for type 2 diabetes, postprocedural hypothyroidism, thyroid cancer s/p thyroidectomy c/b postprocedural hypoparathyroidism, mixed hyperlipidemia, hypertension ,GERD ,chronic kidney disease stage III, history of peptic ulcer disease presents with shortness of breath and cough and also found to be in rapid A-fib. #Upper airway cough syndrome, iso viral URI #Acute bronchitis with entero/rhinovirus Home inhaler: flovent, albuterol; no formal PFTs Failed OP prednisone therapy, Augmentin Discontinue with IV Solu-Medrol 40 mg and reduced nebs prn Continue ICS inhaler Consult Pulmonary: suspicious for UACS 2/2 vial infection, but low suspicion for bacterial -Azithromycin course given prolonged illness -Continue tessalon -Benadryl BID while inpatient, transition to loratadine to prevent side effects #New onset Rapid A-fib [id number] (77, female, HTN, DM) On Cardizem drip Continue IV heparin, deterrmine cost of eliquis Serial cardiac enzymes and echocardiogram ordered Monitor on telemetry Cardiac consult: transition to diltiazem 60mg TID, ween off of drip #type 2 diabetes Holding home p.o. medications Insulin sliding scale Monitor the blood sugars while patient is on IV steroids #Hypothyroidism s/p thyroidectomy #Prior thyroid cancer, 2006 Goal TSH <0.1, at goal; follows endocrinology On Synthroid Will follow free T4 given post-operative status #Hypertension On amlodipine, Will hold irbesartan for YVONNE We will monitor #YVONNE on CKD stage III *improving Presented with creatinine 1.3 Baseline creatinine 1-1.2 Holding irbesartan Gentle fluids Follow labs in a.m. #Leukocytosis Procalcitonin negative We will follow repeat labs #Anemia Hemoglobin 10.1 We will follow stool for Hemoccult Iron studies #ANABELL Completed sleep study on 07/07 IMPRESSION AND PLAN: [id number] obstructive sleep apnea syndromewith an AHI of 5 events per hour, which increased to 50 during REM sleepassociated with significant desaturation. I will discuss the result of this test and treatment options with the patient in next clinic visit. -CPAP at night DVT prophylaxis on IV heparin, pending cost of eliquis Disposition telemetry floor Full code Admission and Anticipated Discharge Date Admission Date: July 09, 2023 Subjective NAEO Reports minimal use of inhalers at baseline; usually seasonal requirement, but denies any chronic issues with wheezing, SCOTT Patient states she has been unable to get over cough and SOB for nearly 2 weeks Denies fevers, chills, but reports tight chest and persistent cough Review of Systems Review of Systems: All systems reviewed & are unremarkable except as noted in Subjective Physical Exam Constitutional: laying in bed pleasantly Respiratory: no wheezing appreciated, no respiratory distress Cardiovascular: irregularly irregular this am Skin: no edema Results & Data Results & Data Vital Signs (Past 12 Hours) Vital Signs Temp Pulse Pulse Pulse Resp BP BP 07/10/23 07:42 36.7 C 124 H 19 133/74 07/10/23 07:13 87 18 07/10/23 06:23 64 102/66 07/10/23 06:09 74 115/68 07/10/23 05:14 97 H 134/76 07/10/23 04:36 78 108/64 07/10/23 03:50 36.4 C L 105 H 19 101/66 07/10/23 01:48 108 H 131/67 07/09/23 22:12 137 H 07/10/23 00:47 100 H 128/72 07/10/23 00:05 101 H 118/72 07/09/23 23:50 131 H 139/71 07/09/23 23:47 131 H 139/71 07/09/23 23:21 132 H 138/72 07/09/23 23:07 131 H 18 07/09/23 22:44 135 H 123/76 07/09/23 22:27 133 H 132/89 07/09/23 22:19 36.7 C 07/09/23 22:13 36.7 C 143 H 24 159/78 H 07/09/23 21:52 07/09/23 21:40 150 H 22 150/102 H 07/09/23 21:20 134 H 22 133/85 07/09/23 21:05 144 H 18 129/83 07/09/23 20:50 147 H 22 115/76 07/09/23 20:35 154 H 24 130/96 07/09/23 20:20 149 H 24 123/78 Pulse Ox O2 Del Method 07/10/23 07:42 95 Room Air 07/10/23 07:13 94 Room Air 07/10/23 06:23 07/10/23 06:09 07/10/23 05:14 07/10/23 04:36 07/10/23 03:50 95 Room Air 07/10/23 01:48 07/09/23 22:12 07/10/23 00:47 07/10/23 00:05 07/09/23 23:50 07/09/23 23:47 07/09/23 23:21 07/09/23 23:07 100 Room Air 07/09/23 22:44 07/09/23 22:27 07/09/23 22:19 96 Room Air 07/09/23 22:13 96 Room Air 07/09/23 21:52 Room Air 07/09/23 21:40 96 Room Air 07/09/23 21:20 96 Room Air 07/09/23 21:05 96 Room Air 07/09/23 20:50 95 Room Air 07/09/23 20:35 96 Room Air 07/09/23 20:20 96 Room Air Laboratory Results Short CBC 07/09/23 07/10/23 Range/Units 17:18 02:41 WBC 19.24 H 20.63 H (4.8-10.8) K/ul Hgb 10.1 L 9.3 L (12.0-16.0) g/dl Hct 30.9 L 28.0 L (37.0-47.0) % Plt Count 462 H 433 H (130-400) K/uL BMP 07/09/23 07/10/23 17:18 02:41 Sodium 139 141 Potassium 3.6 3.6 Chloride 108 H 111 H Carbon Dioxide 17 L 17 L BUN 26 H 23 Creatinine 1.32 H 1.20 Glucose 257 H 278 H Calcium 7.7 L 7.7 L Liver Function 07/09/23 Range/Units 17:18 Total Bilirubin 0.4 (0.2-1.0) mg/dl AST 31 (13-39) U/L ALT 44 (7-52) U/L Alkaline Phosphatase 85 (34-104) U/L Albumin 4.0 (3.4-5.0) gm/dl Medications Administered Home Medications Medication Instructions Recorded Confirmed Last Taken albuterol sulfate 2.5 mg/3 mL 2.5 mg continuous nebulization TID 07/09/23 07/09/23 07/09/23 (0.083 %) solution for nebulization amlodipine 5 mg tablet 5 mg PO QAM 07/09/23 07/09/23 07/09/23 amoxicillin 875 mg-potassium 1 tab PO AMHS 07/09/23 07/09/23 07/09/23 clavulanate 125 mg tablet am dose benzonatate 100 mg capsule 100 mg PO TID PRN Cough 07/09/23 07/09/23 07/09/23 calcium carbonate 600 mg-vitamin 1 tab PO BID 07/09/23 07/09/23 07/09/23 D3 20 mcg (800 unit) tablet am codeine 10 mg-guaifenesin 100 mg/5 5 ml PO Q4 PRN Cough 07/09/23 07/09/23 07/09/23 mL oral liquid diphenhydramine HCl 25 mg tablet 25 mg PO HS 07/09/23 07/09/23 07/08/23 (Allergy) fluticasone propionate 100 1 inh inhalation BID 07/09/23 07/09/23 07/09/23 mcg/actuation blister powder for am inhalation (Flovent Diskus) irbesartan 300 mg tablet 300 mg PO QAM 07/09/23 07/09/23 07/09/23 levothyroxine 112 mcg tablet 112 mcg PO DAILYBB 07/09/23 07/09/23 07/09/23 (Synthroid) linaclotide 72 mcg capsule 72 mcg PO DAILYBB 07/09/23 07/09/23 07/09/23 (Linzess) linagliptin 5 mg tablet (Tradjenta) 5 mg PO QAM 07/09/23 07/09/23 07/09/23 metformin 1,000 mg tablet 1,000 mg PO BID 07/09/23 07/09/23 07/09/23 am omeprazole 20 mg capsule,delayed 20 mg PO QAM 07/09/23 07/09/23 07/09/23 release piroxicam 20 mg capsule 20 mg PO QAM 07/09/23 07/09/23 07/09/23 prednisone 10 mg tablet 10 mg PO UD 07/09/23 07/09/23 07/09/23 Active Medications Generic Name Dose Route Start Last Admin Trade Name Freq PRN Reason Stop Dose Admin Benzonatate 100 mg 07/09/23 22:11 07/10/23 08:27 Benzonatate 100 Mg Capsule PO 08/08/23 22:10 100 mg TID SCOTT Administration Calcium/Vitamin D 1 tab 07/10/23 09:00 07/10/23 08:27 Calcium 600mg + Vit D 400 Iu Tab PO 08/09/23 08:59 1 tab BID SCOTT Administration Diltiazem HCl 60 mg 07/10/23 09:00 07/10/23 10:41 Diltiazem Hcl 60 Mg Tab PO 08/09/23 08:59 60 mg TID SCOTT Administration Fluticasone Furoate 1 puffs 07/10/23 09:00 07/10/23 08:28 Fluticasone Furoate 100mcg 14 Puffs/Inhaler INH 08/09/23 08:59 1 puffs DAILY SCOTT Administration Fluticasone Propionate 1 sprays 07/10/23 10:30 07/10/23 12:31 Fluticasone Propionate Na Spr 16 Gm Btl NA 08/09/23 10:29 1 sprays BID SCOTT Administration Heparin Sodium/Dextrose 25,000 units in 500 mls @ 23 mls/hr 07/09/23 19:45 07/10/23 07:01 Heparin Sodium/Dextrose IV 08/08/23 19:44 1,150 units/hr .[id number] SCOTT 23 mls/hr Titration Protocol 1,150 UNITS/HR Diltiazem HCl 125 mg/ Dextrose 125 mls @ 10 mls/hr 07/09/23 20:15 07/10/23 08:40 IV 08/08/23 20:14 Not Given .[id number] SCOTT Protocol 10 MG/HR Insulin Aspart 0 units 07/09/23 22:11 07/10/23 12:30 Insulin Aspart Per Unit Charge SC 08/08/23 22:10 10 units ACHS SCOTT Administration Levothyroxine Sodium 112 mcg 07/10/23 06:30 07/10/23 05:30 Levothyroxine Sodium 112 Mcg Tablet PO 08/09/23 06:29 112 mcg DAILYBB SCOTT Administration Linaclotide 72 mcg 07/10/23 06:30 07/10/23 05:30 Linaclotide 72 Mcg Capsule PO 08/09/23 06:29 72 mcg DAILYBB SCOTT Administration Losartan Potassium 100 mg 07/10/23 09:00 07/10/23 08:27 Losartan Potassium 50 Mg Tab PO 08/09/23 08:59 100 mg QAM SCOTT Administration Pantoprazole Sodium 40 mg 07/10/23 09:00 07/10/23 08:27 Pantoprazole 40 Mg Tab PO 08/09/23 08:59 40 mg QAM SCOTT Administration
[2023-07-10 08:51] LABS: T4 Free Thyroxine 1.33 ng/dl (0.61-1.60)
[2023-07-10] MEDS ORDERED: amLODIPine BESYLATE 5 MG TAB PO SCH (09:00)
[2023-07-10] MEDS ORDERED: AZITHROMYCIN 250 MG TAB PO SCH (09:00)
[2023-07-10] MEDS ORDERED: UMECLIDINIUM/VILANTEROL 62.5/25MCG 7 PUFFS/INHALER INH SCH (09:00)
--- NOTE | 2023-07-10 09:02 | Cardiology Consultation ---
Date of Consultation July 10, 2023 Assessment & Plan (1) Atrial fibrillation with rapid ventricular response: (2) COPD exacerbation: (3) HTN (hypertension): Plan 77-year-old female admitted with COPD exacerbation and new onset atrial fibrillation with rapid ventricular response. Bio fire positive for rhinovirus. Currently improved rate control with IV diltiazem. Anticoagulated with IV heparin. Recommend addition of oral diltiazem 60 mg 3 times daily. Wean IV diltiazem as tolerated. With active wheeze and ongoing COPD exacerbation we will avoid beta-hugo currently. Transition IV heparin to Eliquis at discharge. 2D transthoracic echocardiogram pending. Low TSH with normal free T4. Repeat as outpatient. History of Present Illness Reason for Consultation: Paroxysmal atrial fibrillation Requesting Physician: Dr. Escobedo Attending Physician: Lori Luna MD History of Present Illness 77-year-old female present to the emergency department with cough and shortness of breath. Reports battling bronchitis for more than 2 weeks. Worsening shortness of breath prompted her arrival to the ER. In the triage area she noted rapid heartbeats and "my heart is beating out of my chest". ECG confirming atrial fibrillation with rapid ventricular response. Denies fever, chills, or sick contacts. No history of atrial fibrillation, although, chronically treated for hypertension and diabetes. Currently resting comfortably. Heart rate in the low 100s. No chest discomfort or heaviness. Nonproductive cough and active wheeze present. No orthopnea, PND, or edema. 2D echo pending. BioFire positive for rhinovirus. Allergies Allergy/AdvReac Type Severity Reaction Status Date / Time bacitracin Allergy Severe Redness of Verified 07/09/23 20:09 Skin Home Medications Medication Instructions Recorded Confirmed Type albuterol sulfate 2.5 mg/3 mL 2.5 mg continuous nebulization TID 07/09/23 History (0.083 %) solution for nebulization amlodipine 5 mg tablet 5 mg PO QAM 07/09/23 07/09/23 History amoxicillin 875 mg-potassium 1 tab PO AMHS 07/09/23 07/09/23 History clavulanate 125 mg tablet benzonatate 100 mg capsule 100 mg PO TID PRN Cough 07/09/23 07/09/23 History calcium carbonate 600 mg-vitamin 1 tab PO BID 07/09/23 07/09/23 History D3 20 mcg (800 unit) tablet codeine 10 mg-guaifenesin 100 mg/5 5 ml PO Q4 PRN Cough 07/09/23 07/09/23 History mL oral liquid diphenhydramine HCl 25 mg tablet 25 mg PO HS 07/09/23 07/09/23 History (Allergy) fluticasone propionate 100 1 inh inhalation BID 07/09/23 07/09/23 History mcg/actuation blister powder for inhalation (Flovent Diskus) irbesartan 300 mg tablet 300 mg PO QAM 07/09/23 07/09/23 History levothyroxine 112 mcg tablet 112 mcg PO DAILYBB 07/09/23 07/09/23 History (Synthroid) linaclotide 72 mcg capsule 72 mcg PO DAILYBB 07/09/23 07/09/23 History (Linzess) linagliptin 5 mg tablet (Tradjenta) 5 mg PO QAM 07/09/23 07/09/23 History metformin 1,000 mg tablet 1,000 mg PO BID 07/09/23 07/09/23 History omeprazole 20 mg capsule,delayed 20 mg PO QAM 07/09/23 07/09/23 History release piroxicam 20 mg capsule 20 mg PO QAM 07/09/23 07/09/23 History prednisone 10 mg tablet 10 mg PO UD 07/09/23 07/09/23 History apixaban 5 mg tablet 5 mg PO Q12H #60 tabs 07/10/23 Rx Patient History Social History Smoking Status: Former smoker Do You Dip or Chew Tobacco: No; Tobacco Cessation Education Requested by Patient: No Hx Alcohol Use: Yes Hx Substance Use: No Preferred Language: Tamaz[place] 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: 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 Beliefs That Will Affect Care: None Current Living Situation: Spouse Other Information That Helps Us Care for You: No Feels Safe at Home: Yes Assistive Devices: None Review of Systems Review of Systems: All systems reviewed & are unremarkable except as noted in Subjective Physical Exam Constitutional: well nourished and + ill appearing; no acute distress Respiratory: no respiratory distress, no labored breathing and no retractions Auscultation: + wheezes; no rales and no rhonchi Cardiovascular: Rate/Rhythm: + tachycardic and + irregularly irregular Heart Sounds: normal S1 and normal S2; no murmur Vessels: radial pulses present; no JVD Extremities: no edema Gastrointestinal (Abdomen): Inspection/Auscultation: abdomen normal to inspection; abdomen not distended and + abnormal bowel sounds Percussion/Palpation: abdomen soft; abdomen nontender, no guarding and abdomen not rigid Neurologic: CN's II-XI intact bilaterally and moves all extremities; no focal motor deficits Psychiatric: A+Ox3, euthymic affect Results & Data Vital Signs (Past 12 Hours) Vital Signs Temp Pulse Pulse Pulse Resp BP BP 07/10/23 07:42 36.7 C 124 H 19 133/74 07/10/23 07:13 87 18 07/10/23 06:23 64 102/66 07/10/23 06:09 74 115/68 07/10/23 05:14 97 H 134/76 07/10/23 04:36 78 108/64 07/10/23 03:50 36.4 C L 105 H 19 101/66 07/10/23 01:48 108 H 131/67 07/09/23 22:12 137 H 07/10/23 00:47 100 H 128/72 07/10/23 00:05 101 H 118/72 07/09/23 23:50 131 H 139/71 07/09/23 23:47 131 H 139/71 07/09/23 23:21 132 H 138/72 07/09/23 23:07 131 H 18 07/09/23 22:44 135 H 123/76 07/09/23 22:27 133 H 132/89 07/09/23 22:19 36.7 C 07/09/23 22:13 36.7 C 143 H 24 159/78 H 07/09/23 21:52 07/09/23 21:40 150 H 22 150/102 H 07/09/23 21:20 134 H 22 133/85 07/09/23 21:05 144 H 18 129/83 Pulse Ox O2 Del Method 07/10/23 07:42 95 Room Air 07/10/23 07:13 94 Room Air 07/10/23 06:23 07/10/23 06:09 07/10/23 05:14 07/10/23 04:36 10/29/23 03:50 95 Room Air 07/10/23 01:48 07/09/23 22:12 07/10/23 00:47 07/10/23 00:05 07/09/23 23:50 07/09/23 23:47 07/09/23 23:21 07/09/23 23:07 100 Room Air 07/09/23 22:44 07/09/23 22:27 07/09/23 22:19 96 Room Air 07/09/23 22:13 96 Room Air 07/09/23 21:52 Room Air 07/09/23 21:40 96 Room Air 07/09/23 21:20 96 Room Air 07/09/23 21:05 96 Room Air Laboratory Results Cardiac Enzymes 07/09/23 Range/Units 17:18 AST 31 (13-39) U/L Troponin I High Sens 6.8 (0-14) pg/ml Coagulation 07/09/23 07/10/23 07/10/23 Range/Units 17:18 02:41 07:17 PT 10.9 (9.0-12.0) Seconds APTT 22.8 46.4 H* 62.3 H* (21.0-31.0) Seconds CBC 07/09/23 07/10/23 Range/Units 17:18 02:41 WBC 19.24 H 20.63 H (4.8-10.8) K/ul RBC 3.70 L 3.45 L (4.20-5.40) M/uL Hgb 10.1 L 9.3 L (12.0-16.0) g/dl Hct 30.9 L 28.0 L (37.0-47.0) % Plt Count 462 H 433 H (130-400) K/uL Neut # (Auto) 16.17 H 17.67 H (1.40-6.50) K/uL Lymph # (Auto) 1.63 1.47 (1.20-3.40) K/uL [place] # (Auto) 0.40 0.31 (0.11-0.59) K/uL Eos # (Auto) 0.00 0.00 (0.00-0.50) K/uL Baso # (Auto) 0.07 0.07 (0.00-0.20) K/uL Comprehensive Metabolic Panel 07/09/23 07/10/23 Range/Units 17:18 02:41 Sodium 139 141 (136-145) mmol/L Potassium 3.6 3.6 (3.5-5.1) mmol/L Chloride 108 H 111 H (98-107) mmol/L Carbon Dioxide 17 L 17 L (21-32) mmol/L BUN 26 H 23 (6-23) mg/dl Creatinine 1.32 H 1.20 (0.6-1.2) mg/dl Glucose 257 H 278 H (70-99(Fasting)) mg/dl Calcium 7.7 L 7.7 L (8.6-10.3) mg/dl AST 31 (13-39) U/L ALT 44 (7-52) U/L Alkaline Phosphatase 85 (34-104) U/L Total Protein 7.4 (6.0-8.3) gm/dl Albumin 4.0 (3.4-5.0) gm/dl Intake and Output 07/09/23 07/10/23 07/10/23 22:59 06:59 14:59 Intake Total 1833.333 / 2936.083 1102.75 / 2936.083 81.850 / 81.850 Output Total 1250 / 1250 400 / 400 Balance 1833.333 / 1686.083 -147.25 / 1686.083 -318.150 / -318.150 Intake: IV 1833.333 / 2236.083 402.75 / 2236.083 81.850 / 81.850 Calcium Gluconate 1,000 mg In 120 / 120 60 ml @ 240 mls/hr IV Q15M [facility] Rx#:[id number] Heparin Sodium/Dextrose 25,000 172.5 / 172.5 75.517 / 75.517 units In 500 ml @ 1,150 UNITS/ HR 23 mls/hr IV .[id number] [facility] Rx #:[id number] Magnesium Sulfate / D5w 1 gm In 198.333 / 298.333 100 / 298.333 100 ml @ 50 mls/hr IV Q2H [facility] Rx#:[id number] Sodium Chloride 0.9% 1,000 ml @ 1000 / 1000 999 mls/hr IV .Q1H1M [facility] Rx#: [id number] Sodium Chloride 0.9% 500 ml @ 500 / 500 999 mls/hr IV .Q31M [facility] Rx#: [id number] dilTIAZem HCL 125 mg In 15 / 145.25 130.25 / 145.25 6.333 / 6.333 Dextrose 5% 100 ml @ 15 MG/HR 15 mls/hr IV .Q8H20M [facility] Rx#: [id number] Oral 700 / 700 Output: Urine 1250 / 1250 400 / 400 Other: Weight 72.3 kg 73 kg Weight Measurement Method Built in [facility] in [facility]
[2023-07-10 09:37] LABS: Base Excess ABG -10.5 mEq/L (-9-1.8); HCO3 ABG 14 mmol/L (19-24); Oxygen Saturation ABG 96.5 % (90-95); PCO2 ABG 25 mmHg (35-46); PO2 ABG 82 mmHg (80-95); pH ABG 7.34 (7.35-7.45)
[2023-07-10 09:38] LABS: Allen Test Pos (Pos)
--- NOTE | 2023-07-10 10:28 | Pulmonary Consultation ---
Date of Consultation July 10, 2023 Assessment & Plan (1) Cough: (2) Upper airway cough syndrome: Plan Impression: 77-year-old female with cough in the setting of viral URI. Her smoking history is quite trivial and I doubt the patient has COPD. Recommendations: 1. Upper airway cough syndrome: Treatment is primarily directed postnasal drip. Recommend decongestants, antihistamines, topical nasal steroids, and saline sinus irrigation. No indication for steroids. Will complete a course of azithromycin given her 2-week history of symptoms but I do not suspect this is an acute bacterial infection. Consideration for other etiologies of her cough including Cozaar may be considered if she fails to improve. I do not think this is going to be an inhaler responsive illness. Can continue Tessalon if she thinks they are beneficial with regards to her symptoms. 2. Consideration for outpatient pulmonary function testing may be appropriate. 3. Patient does not require hospitalization for pulmonary issues currently. Once her cardiac issues are resolved, she can be dismissed from the hospital. I would be happy to see her back in the pulmonary clinic if needed. Pulmonary will sign off at this point in time. Feel free to contact us if we can be of additional assistance History of Present Illness Attending Physician: Lori Luna MD History of Present Illness Asked by hospitalist to assist in evaluation management this patient with cough. History is obtained from discussion with the patient and reviewed electronic medical record. The patient is a 77-year-old female with a less than [id number] history of tobacco abuse who states she gets bronchitis once or twice a year. She typically is able to manage this at home without difficulty however this current episode has been going on for about 2 weeks. She has been treated with antibiotics and steroids in the outpatient setting without much improvement. She presented to the emergency room due to persistence of her symptoms. She was found to be in rapid atrial fibrillation. She has been initiated on heparin and diltiazem. Cardiology consultation was obtained and is pending. The patient does not use any inhalers at home. She does not report significant shortness of breath with physical activity. She does not produce phlegm on a regular basis. She is never had PFTs. She does not require supplemental oxygen. Allergies Allergy/AdvReac Type Severity Reaction Status Date / Time bacitracin Allergy Severe Redness of Verified 07/09/23 20:09 Skin Home Medications Medication Instructions Recorded Confirmed Type albuterol sulfate 2.5 mg/3 mL 2.5 mg continuous nebulization TID 07/09/23 07/09/23 History (0.083 %) solution for nebulization amlodipine 5 mg tablet 5 mg PO QAM 07/09/23 07/09/23 History amoxicillin 875 mg-potassium 1 tab PO AMHS 07/09/23 07/09/23 History clavulanate 125 mg tablet benzonatate 100 mg capsule 100 mg PO TID PRN Cough 07/09/23 07/09/23 History calcium carbonate 600 mg-vitamin 1 tab PO BID 07/09/23 07/09/23 History D3 20 mcg (800 unit) tablet codeine 10 mg-guaifenesin 100 mg/5 5 ml PO Q4 PRN Cough 07/09/23 07/09/23 History mL oral liquid diphenhydramine HCl 25 mg tablet 25 mg PO HS 07/09/23 07/09/23 History (Allergy) fluticasone propionate 100 1 inh inhalation BID 07/09/23 07/09/23 History mcg/actuation blister powder for inhalation (Flovent Diskus) irbesartan 300 mg tablet 300 mg PO QAM 07/09/23 07/09/23 History levothyroxine 112 mcg tablet 112 mcg PO DAILYBB 07/09/23 07/09/23 History (Synthroid) linaclotide 72 mcg capsule 72 mcg PO DAILYBB 07/09/23 07/09/23 History (Linzess) linagliptin 5 mg tablet (Tradjenta) 5 mg PO QAM 07/09/23 07/09/23 History metformin 1,000 mg tablet 1,000 mg PO BID 07/09/23 07/09/23 History omeprazole 20 mg capsule,delayed 20 mg PO QAM 07/09/23 07/09/23 History release piroxicam 20 mg capsule 20 mg PO QAM 07/09/23 07/09/23 History prednisone 10 mg tablet 10 mg PO UD 07/09/23 07/09/23 History Patient History Social History Smoking Status: Former smoker Do You Dip or Chew Tobacco: No; Tobacco Cessation Education Requested by Patient: No Hx Alcohol Use: Yes Hx Substance Use: No Preferred Language: Jamaican 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: Effective 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 Beliefs That Will Affect Care: None Current Living Situation: Spouse Other Information That Helps Us Care for You: No Feels Safe at Home: Yes Assistive Devices: Denture - Upper, Denture - Lower and Glasses Review of Systems Review of Systems: All systems reviewed & are unremarkable except as noted in Subjective Physical Exam Constitutional: WD/WN, vitals as above Neck: trachea midline, no thyromegaly Respiratory: normal respiratory effort, lungs clear to auscultation Cardiovascular: Rate/Rhythm: + tachycardic and + irregularly irregular Heart Sounds: normal S1 and normal S2; no murmur Extremities: no edema Gastrointestinal (Abdomen): normal bowel sounds, soft, nontender, no hepatosplenomegaly Musculoskeletal: Extremities: extremities normal to inspection Skin: no rashes, warm and dry Neurologic: Nonfocal exam Lymphatic: no cervical lymphadenopathy Results & Data Results & Data Vital Signs (Past 12 Hours) Vital Signs Temp Pulse Pulse Pulse Resp BP BP 07/10/23 07:42 36.7 C 124 H 19 133/74 07/10/23 07:13 87 18 07/10/23 06:23 64 102/66 07/10/23 06:09 74 115/68 07/10/23 05:14 97 H 134/76 07/10/23 04:36 78 108/64 07/10/23 03:50 36.4 C L 105 H 19 101/66 07/10/23 01:48 108 H 131/67 07/10/23 00:47 100 H 128/72 07/10/23 00:05 101 H 118/72 07/09/23 23:50 131 H 139/71 07/09/23 23:47 131 H 139/71 07/09/23 23:21 132 H 138/72 07/09/23 23:07 131 H 18 07/09/23 22:44 135 H 123/76 07/09/23 22:27 133 H 132/89 Pulse Ox O2 Del Method 07/10/23 07:42 95 Room Air 07/10/23 07:13 94 Room Air 07/10/23 06:23 07/10/23 06:09 07/10/23 05:14 07/10/23 04:36 07/10/23 03:50 95 Room Air 07/10/23 01:48 07/10/23 00:47 07/10/23 00:05 07/09/23 23:50 07/09/23 23:47 07/09/23 23:21 07/09/23 23:07 100 Room Air 07/09/23 22:44 07/09/23 22:27 Critical Care Results & Data Vital Signs (Past 12 Hours) Vital Signs Temp Pulse Pulse Pulse Resp BP BP 07/10/23 07:42 36.7 C 124 H 19 133/74 07/10/23 07:13 87 18 07/10/23 06:23 64 102/66 07/10/23 06:09 74 115/68 07/10/23 05:14 97 H 134/76 07/10/23 04:36 78 108/64 07/10/23 03:50 36.4 C L 105 H 19 101/66 07/10/23 01:48 108 H 131/67 07/10/23 00:47 100 H 128/72 07/10/23 00:05 101 H 118/72 07/09/23 23:50 131 H 139/71 07/09/23 23:47 131 H 139/71 07/09/23 23:21 132 H 138/72 07/09/23 23:07 131 H 18 07/09/23 22:44 135 H 123/76 07/09/23 22:27 133 H 132/89 Pulse Ox O2 Del Method 07/10/23 07:42 95 Room Air 07/10/23 07:13 94 Room Air 07/10/23 06:23 07/10/23 06:09 07/10/23 05:14 07/10/23 04:36 07/10/23 03:50 95 Room Air 07/10/23 01:48 07/10/23 00:47 07/10/23 00:05 07/09/23 23:50 07/09/23 23:47 07/09/23 23:21 07/09/23 23:07 100 Room Air 07/09/23 22:44 07/09/23 22:27 Lab & Micro Results (Past 24 Hours) RBC 3.45 M/uL (4.20-5.40) L 07/10/23 WBC 20.63 K/ul (4.8-10.8) H 07/10/23 Hgb 9.3 g/dl (12.0-16.0) L 07/10/23 Hct 28.0 % (37.0-47.0) L 07/10/23 MCV 81.2 fL (80.0-100.0) 07/10/23 MCH 27.0 pg (25.0-34.0) 07/10/23 MCHC 33.2 g/dL (32.0-36.0) 07/10/23 RDW Standard Deviation 48.5 fL (36.4-46.3) H 07/10/23 RDW Coefficient of Variation 16.5 % (11.5-14.5) H 07/10/23 Plt Count 433 K/uL (130-400) H 07/10/23 MPV 9.6 fL (9.4-12.4) 07/10/23 Nucleated Red Blood Cells % (auto) 0.1 % 07/10 Nucleated RBC Absolute Count (auto) 0.02 K/uL (0.00-0.12) 1 Neutrophils (%) (Auto) 85.7 % 07/10/23 Lymphocytes (%) (Auto) 7.1 % 07/10/23 Monocytes # (Auto) 0.31 K/uL (0.11-0.59) 07/10/23 Eosinophils # (Auto) 0.00 K/uL (0.00-0.50) 07/10/23 Immature Granulocyte % (Auto) 5.4 % 07/10/23 Neutrophils # (Auto) 17.67 K/uL (1.40-6.50) H 07/10/23 Lymphocytes # (Auto) 1.47 K/uL (1.20-3.40) 07/10/23 Monocytes # (Auto) 0.31 K/uL (0.11-0.59) 07/10/23 Eosinophils # (Auto) 0.00 K/uL (0.00-0.50) 07/10/23 Basophils # (Auto) 0.07 K/uL (0.00-0.20) 07/10/23 Immature Granulocyte # (Auto) 1.11 K/uL (0.01-0.20) H 07/10 Na 141 mmol/L (136-145) 07/10/23 K 3.6 mmol/L (3.5-5.1) 07/10/23 Cl 111 mmol/L (98-107) H 07/10/23 CO2 17 mmol/L (21-32) L 07/10/23 Anion Gap 13 (3-11) H 07/10/23 BUN 23 mg/dl (6-23) 07/10/23 Creatinine 1.20 mg/dl (0.6-1.2) 07/10/23 Estimated GFR ( Amer) 51.2 ml/min 07/10/23 Estimated GFR (Non-Af Amer) 44.2 ml/min 07/10/23 BUN/Creatinine Ratio 19.2 (10-20) 07/10/23 Glu 278 mg/dl (70-99(Fasting)) H 07/10/23 Ca 7.7 mg/dl (8.6-10.3) L 07/10/23 Total Bilirubin 0.4 mg/dl (0.2-1.0) 07/09/23 AST 31 U/L (13-39) 07/09/23 ALT 44 U/L (7-52) 07/09/23 Alkaline Phosphatase 85 U/L (34-104) 07/09/23 TP 7.4 gm/dl (6.0-8.3) 07/09/23 Albumin 4.0 gm/dl (3.4-5.0) 07/09/23 Globulin 3.4 gm/dl (2.5-4.0) 07/09/23 Albumin/Globulin Ratio 1.2 (0.9-2) 07/09/23 Mg 2.3 mg/dl (1.7-2.4) 07/10/23 02:41 Calcium Level 7.7 mg/dl (8.6-10.3) L 07/10/23 02:41 Prothromb Time International Ratio 1.0 (0.9-1.1) 07/09/23 17:1 8 Arterial Blood pH 7.34 (7.35-7.45) L 07/10/23 09:21 Arterial Blood Partial Pressure CO2 25 mmHg (35-46) L 07/10/23 09:21 Arterial Blood Partial Pressure O2 82 mmHg (80-95) 07/10/23 09: 21 Arterial Blood HCO3 14 mmol/L (19-24) L 07/10/23 09:21 Arterial Blood Base Excess -10.5 mEq/L (-9-1.8) L 07/10/23 09:2 1 Arterial Blood Oxygen Saturation 96.5 % (90-95) H 07/10/23 09:2 1 Blood Gas Oxygen Given ROOM AIR 07/10/23 09:21 Subhash Test Pos (Pos) 07/10/23 09:21 Diagnostic Findings (Past 24 Hours) Chest X-Ray 07/09/23 17:07 XR chest 1V not portable HISTORY: 77 years-old Female Chest pain, nonspecific COMPARISON: None TECHNIQUE: AP view of the chest FINDINGS: Cardiac silhouette is large. No pneumothorax, pleural effusion or airspace consolidation. Likely chronic angulated displaced mid left clavicular fracture. Degenerative changes of the shoulders and spine. IMPRESSION: No acute process of the chest. ACT 112: Negative or not required by law. The above report was generated using voice recognition software. It may contain grammatical, syntax or spelling errors. Electronically signed by: Vin Baltazar M.D. 07/09/2023 5:50 PM I & O Totals 24 Hours 07/09/23 07/10/23 07/11/23 06:59 06:59 06:59 Intake Total 2936.083 / 2936.083 81.850 / 81.850 Output Total 1250 / 1250 400 / 400 Balance 1686.083 / 1686.083 -318.150 / -318.150 Cumulative 07/09/23 16:57 thru 07/10/23 07:58 Intake Total 3017.933 Output Total 1650 Balance 1367.933 RT Ventilator Mngmt (Last Documented) Ventilator Ordered Settings Respiratory Rate 19 07/10/23 07:42 Ventilator - PT Measurements Respiratory Rate 19 PG Care Time/CCT Total # of Minutes Spent Total Time Spent with Patient: Total time spent is greater than 50% in coordination of care (as documented) at patient's floor/unit and/or counseling patient: Coding Level of Care Code 87800 IN/OBS CONSULT LVL 4,60M Diagnoses Cough R05.9 Upper airway cough syndrome R05.8
[2023-07-10] MEDS: dilTIAZem HCl 60 MG TAB PO SCH ×3 (10:41→20:35)
[2023-07-10] MEDS: FLUTICASONE PROPIONATE NA SPR 16 GM BTL SCH ×2 (12:31→20:35)
--- NOTE | 2023-07-10 12:43 | Electrocardiogram Report ---
Test Reason : Blood Pressure : / mmHG Vent. Rate : 068 BPM Atrial Rate : 074 BPM P-R Int : 000 ms QRS Dur : 086 ms QT Int : 390 ms P-R-T Axes : 000 009 021 degrees QTc Int : 414 ms Atrial fibrillation Abnormal ECG When compared with ECG of 09-JUL-2023 19:20, (unconfirmed) Vent. rate has decreased BY [address] no longer depressed in Lateral leads T wave inversion no longer evident in Inferior leads Nonspecific T wave abnormality now evident in Anterior leads T wave inversion no longer evident in Lateral leads Confirmed by Lucien Coyle ([id number]) on 07/10/2023 12:43:24 PM Referred By: REFERRED SELF Confirmed By:Valentín Coyle
--- NOTE | 2023-07-10 12:43 | Electrocardiogram Report ---
Test Reason : Blood Pressure : / mmHG Vent. Rate : 158 BPM Atrial Rate : 000 BPM P-R Int : 000 ms QRS Dur : 084 ms QT Int : 290 ms P-R-T Axes : 000 000 201 degrees QTc Int : 470 ms Atrial fibrillation with rapid ventricular response Marked ST abnormality, possible inferolateral subendocardial injury Abnormal ECG When compared with ECG of 09-JUL-2023 17:11, Atrial fibrillation has replaced Sinus rhythm Vent. rate has increased BY [address] now depressed in Anterolateral leads T wave inversion now evident in Inferior leads T wave inversion now evident in Lateral leads Confirmed by Lucien Coyle ([id number]) on 07/10/2023 12:42:40 PM Referred By: REFERRED SELF Confirmed By:Valentín Coyle
[2023-07-10] MEDS ORDERED: IPRATROPIUM BROMIDE NEB SOLN 0.02% 2.5 ML VIAL INH PRN (13:00)
[2023-07-10] MEDS ORDERED: PERFLUTREN LIPID MICROSPHERE (DEFINITY) IV ONE (15:48)
[2023-07-10] MEDS: PSEUDOEPHEDRINE HCL 30 MG TAB PO SCH ×2 (17:13→20:34)
[2023-07-10] MEDS: HEPARIN SODIUM/DEXTROSE 25,000 UNITS/500 ML BAG IV SCH (17:14)
[2023-07-10] MEDS: diphenhydrAMINE Capsule 25 MG CAP PO SCH (20:34)
[2023-07-11] MEDS: linaCLOtide 72 MCG CAPSULE PO SCH (05:38)
[2023-07-11] MEDS: LEVOTHYROXINE SODIUM 112 MCG TABLET PO SCH (05:38)
[2023-07-11 07:34] LABS: Estimated Average Glucose 151 mg/dl; Hemoglobin A1C 6.9 % (4.5-5.6)
[2023-07-11 07:34] LABS: Partial Thromboplastin Ratio 3.7
[2023-07-11 07:46] LABS: Partial Thromboplastin Time 105.2 Seconds (21.0-31.0)
[2023-07-11] MEDS: AZITHROMYCIN 250 MG TAB PO SCH (08:30)
[2023-07-11] MEDS: APIXABAN 5 MG TABLET PO SCH ×2 (08:30→20:21)
[2023-07-11] MEDS: PANTOprazole 40 MG TAB PO SCH (08:30)
[2023-07-11] MEDS: LOSARTAN POTASSIUM 50 MG TAB PO SCH (08:31)
[2023-07-11] MEDS: BENZONATATE 100 MG CAPSULE PO SCH ×3 (08:31→20:21)
[2023-07-11] MEDS: PSEUDOEPHEDRINE HCL 30 MG TAB PO SCH ×3 (08:31→20:21)
[2023-07-11] MEDS: FLUTICASONE PROPIONATE NA SPR 16 GM BTL SCH ×2 (08:32→20:20)
[2023-07-11] MEDS: dilTIAZem HCl 60 MG TAB PO SCH ×3 (08:32→20:21)
[2023-07-11] MEDS: CALCIUM 600MG + VIT D 400 IU TAB PO SCH ×2 (08:32→20:22)
[2023-07-11] MEDS: FLUTICASONE FUROATE 100MCG 14 PUFFS/INHALER INH SCH (08:33)
[2023-07-11] MEDS: diphenhydrAMINE Capsule 25 MG CAP PO SCH ×2 (08:35→20:23)
[2023-07-11] MEDS: INSULIN ASPART PER UNIT CHARGE SC SCH ×4 (08:35→20:20)
[2023-07-11 08:42] LABS: Hematocrit (blood only) 25.4 % (37.0-47.0); Hemoglobin 8.5 g/dl (12.0-16.0); Mean Corpuscular Hemoglobin 27.4 pg (25.0-34.0); Mean Corpuscular Hgb Conc 33.5 g/dL (32.0-36.0); Mean Corpuscular Volume 81.9 fL (80.0-100.0); Mean Platelet Volume 10.5 fL (9.4-12.4); Nucleated RBC # (auto) 0.02 K/uL (0.00-0.12); Nucleated RBC % (auto) 0.1 %; Platelet Count 418 K/uL (130-400); RDW Coefficient of Variation 16.9 % (11.5-14.5); RDW Standard Deviation 49.6 fL (36.4-46.3); White Blood Count 27.48 K/ul (4.8-10.8)
[2023-07-11 08:47] LABS: Calcium 7.4 mg/dl (8.6-10.3); Creatinine Clr Calc Pharmacy 35.2 ml/min; Est GFR (African American) 41.8 ml/min; Potassium 3.9 mmol/L (3.5-5.1)
[2023-07-11 09:20] LABS: Basophils # (auto) 0.07 K/uL (0.00-0.20); Basophils % (auto) 0.3 %; Immature Granulocytes # (auto) 1.64 K/uL (0.01-0.20); Lymphocytes # (auto) 2.25 K/uL (1.20-3.40); Lymphocytes % (auto) 8.2 %; Monocytes # (auto) 1.54 K/uL (0.11-0.59); Monocytes % (auto) 5.6 %; Neutrophils # (auto) 21.98 K/uL (1.40-6.50); Neutrophils % (auto) 79.9 %
--- NOTE | 2023-07-11 11:54 | Cardiology Progress Note ---
Date of Service July 11, 2023 Assessment & Plan (1) Atrial fibrillation with rapid ventricular response: (2) COPD exacerbation: (3) HTN (hypertension): Plan Transition to long-acting Cardizem CD in am, 180 milligrams daily. Continue Eliquis 5 mg twice daily. Outpatient cardiology follow-up in 2 to 4 weeks. Low TSH with normal free T4. Repeat as outpatient. Thank you for allow me to participate in the care of your patient. Admission and Anticipated Discharge Date Admission Date: July 09, 2023 Subjective Patient seen and examined at the bedside. Converted to sinus rhythm yesterday. Denies palpitations. Cough unchanged. No orthopnea, PND, or edema. Denies chest discomfort. IV heparin transition to Eliquis. Tolerating short acting diltiazem. Review of Systems Review of Systems: All systems reviewed & are unremarkable except as noted in Subjective Physical Exam Constitutional: well nourished and + ill appearing; no acute distress Respiratory: no respiratory distress, no labored breathing and no retractions Auscultation: + wheezes; no rales and no rhonchi Cardiovascular: Rate/Rhythm: regular rate and regular rhythm Heart Sounds: normal S1 and normal S2; no murmur Vessels: radial pulses present; no JVD Extremities: no edema Gastrointestinal (Abdomen): Inspection/Auscultation: abdomen normal to inspection; abdomen not distended and + abnormal bowel sounds Percussion/Palpation: abdomen soft; abdomen nontender, no guarding and abdomen not rigid Neurologic: CN's II-XI intact bilaterally and moves all extremities; no focal motor deficits Psychiatric: A+Ox3, euthymic affect Results & Data Vital Signs (Past 12 Hours) Vital Signs Temp Pulse Pulse Pulse Resp BP Pulse Ox 07/11/23 11:49 36.4 C L 71 18 123/69 71 L 07/11/23 08:56 71 07/11/23 07:22 07/11/23 06:50 36.6 C 71 18 120/70 94 07/11/23 02:34 36.5 C 73 18 113/66 93 O2 Del Method 07/11/23 11:49 Room Air 07/11/23 08:56 07/11/23 07:22 Room Air 07/11/23 06:50 Room Air 07/11/23 02:34 Room Air Laboratory Results Coagulation 07/11/23 Range/Units 06:25 APTT 105.2 H* (21.0-31.0) Seconds CBC 07/11/23 Range/Units 06:23 WBC 27.48 H (4.8-10.8) K/ul RBC 3.10 L (4.20-5.40) M/uL Hgb 8.5 L (12.0-16.0) g/dl Hct 25.4 L (37.0-47.0) % Plt Count 418 H (130-400) K/uL Neut # (Auto) 21.98 H (1.40-6.50) K/uL Lymph # (Auto) 2.25 (1.20-3.40) K/uL [place] # (Auto) 1.54 H (0.11-0.59) K/uL Eos # (Auto) 0.00 (0.00-0.50) K/uL Baso # (Auto) 0.07 (0.00-0.20) K/uL Comprehensive Metabolic Panel 07/11/23 Range/Units 07:45 Sodium 139 (136-145) mmol/L Potassium 3.9 (3.5-5.1) mmol/L Chloride 111 H (98-107) mmol/L Carbon Dioxide 21 (21-32) mmol/L BUN 27 H (6-23) mg/dl Creatinine 1.42 H (0.6-1.2) mg/dl Glucose 193 H (70-99(Fasting)) mg/dl Calcium 7.4 L (8.6-10.3) mg/dl Intake and Output 07/10/23 07/11/23 07/11/23 22:59 06:59 14:59 Intake Total 387.116 / 2475.383 766.417 / 2475.383 40.25 / 40.25 Balance 387.116 / 2075.383 766.417 / 2075.383 40.25 / 40.25 Intake: IV 387.116 / 1735.383 266.417 / 1735.383 40.25 / 40.25 Heparin Sodium/Dextrose 25,000 281.366 / 623.300 266.417 / 623.300 40.25 / 40.25 units In 500 ml @ 1,150 UNITS/ HR 23 mls/hr IV .[id number] COUNTS INCLUDE 234 BEDS AT THE [facility] Rx #:[id number] dilTIAZem HCL 125 mg In 105.750 / 112.083 Dextrose 5% 100 ml @ 10 MG/HR 10 mls/hr IV .[id number] COUNTS INCLUDE 234 BEDS AT THE [facility] Rx#: [id number] Oral 500 / 740 Other: # Unmeasured Voids 1 1 Weight 74 kg Weight Measurement Method Built in [facility]
[2023-07-11] MEDS ORDERED: ALBUT/IPRATROP 3MG/0.5MG NEB 3 ML VIAL NEB PRN (12:51)
[2023-07-11] MEDS ORDERED: FUROSEMIDE INJ 20 MG/2 ML VIAL IV ONE (12:53)
--- NOTE | 2023-07-11 13:17 | Electrocardiogram Report ---
Test Reason : Blood Pressure : / mmHG Vent. Rate : 068 BPM Atrial Rate : 068 BPM P-R Int : 172 ms QRS Dur : 086 ms QT Int : 426 ms P-R-T Axes : 064 009 035 degrees QTc Int : 452 ms Normal sinus rhythm Normal ECG When compared with ECG of 10-JUL-2023 05:42, Sinus rhythm has replaced Atrial fibrillation Confirmed by Lucien Coyle ([id number]) on 07/11/2023 1:16:49 PM Referred By: REFERRED SELF Confirmed By:Valentín Coyle
--- NOTE | 2023-07-11 14:42 | Hospitalist Progress Note ---
Date of Service July 11, 2023 Assessment & Plan (1) COPD exacerbation: Plan: 77-year-old female with past medical history significant for type 2 diabetes, postprocedural hypothyroidism, thyroid cancer s/p thyroidectomy c/b postprocedural hypoparathyroidism, mixed hyperlipidemia, hypertension ,GERD ,chronic kidney disease stage III, history of peptic ulcer disease presents with shortness of breath and cough and also found to be in rapid A-fib. Patient transitioned off of IV diltiazem and to PO in morning.Additionally, patient placed on eliquis. Cost is approximately 133$ a month, but with coupon will be free this month. Patient is in "hole" with insurance, therefore cost will likely improve at the beginning of the year. Patient willing to incur cost at this point until she is out of "hole." Regarding her breathing, encouraged her to use prn nebs, but suspect more fluid contributing to symptoms. Will trial IV lasix. Plan to discharge tentatively tomorrow contingent on respiratory status #Upper airway cough syndrome, iso viral URI #Acute bronchitis with entero/rhinovirus Home inhaler: flovent, albuterol; no formal PFTs Failed OP prednisone therapy, Augmentin Discontinue with IV Solu-Medrol 40 mg and reduced nebs prn Continue ICS inhaler Consult Pulmonary: suspicious for UACS 2/2 vial infection, but low suspicion for bacterial -Azithromycin course given prolonged illness -Continue tessalon -Benadryl BID while inpatient, transition to loratadine to prevent side effects #New onset Rapid A-fib [id number] (77, female, HTN, DM) On Cardizem drip Continue IV heparin, deterrmine cost of eliquis Serial cardiac enzymes and echocardiogram ordered Monitor on telemetry Cardiac consult: transition to diltiazem 60mg TID, ween off of drip #Leukocytosis Patient looks notably better clinically--recieved q8h solumedrol 07/10, will ass ess for downtrend #type 2 diabetes Holding home p.o. medications Insulin sliding scale Monitor the blood sugars while patient is on IV steroids #Hypothyroidism s/p thyroidectomy #Prior thyroid cancer, 2006 Goal TSH <0.1, at goal; follows endocrinology On Synthroid Will follow free T4 given post-operative status #Hypertension On amlodipine, Will hold irbesartan for YVONNE We will monitor #YVONNE on CKD stage III *improving Presented with creatinine 1.3 Baseline creatinine 1-1.2 Holding irbesartan Gentle fluids Follow labs in a.m. #Leukocytosis Procalcitonin negative We will follow repeat labs #Anemia Hemoglobin 10.1 We will follow stool for Hemoccult Iron 27, start supplement #ANABELL Completed sleep study on 07/07 IMPRESSION AND PLAN: [place]-sv-nggehr obstructive sleep apnea syndromewith an AHI of 5 events per hour, which increased to 50 during REM sleepassociated with significant desaturation. I will discuss the result of this test and treatment options with the patient in next clinic visit. -CPAP at night; see if CM can obtain CPAP for patient prior to dispo or start process DVT eliquis Disposition telemetry floor Full code Admission and Anticipated Discharge Date Admission Date: July 09, 2023 Subjective NAEO Reports feeling congested and "wheezy" but denies fevers or other acute concerns Review of Systems Review of Systems: All systems reviewed & are unremarkable except as noted in Subjective Physical Exam Constitutional: WD/WN, vitals as above Respiratory: no wheezes, but crackles in bases Cardiovascular: RRR, no murmur, no edema Gastrointestinal (Abdomen): normal bowel sounds, soft, nontender, no hepatosplenomegaly Results & Data Results & Data Vital Signs (Past 12 Hours) Vital Signs Temp Pulse Pulse Pulse Resp BP Pulse Ox 07/11/23 11:49 36.4 C L 71 18 123/69 71 L 07/11/23 08:56 71 07/11/23 07:22 07/11/23 06:50 36.6 C 71 18 120/70 94 O2 Del Method 07/11/23 11:49 Room Air 07/11/23 08:56 07/11/23 07:22 Room Air 07/11/23 06:50 Room Air Laboratory Results Short CBC 07/11/23 Range/Units 06:23 WBC 27.48 H (4.8-10.8) K/ul Hgb 8.5 L (12.0-16.0) g/dl Hct 25.4 L (37.0-47.0) % Plt Count 418 H (130-400) K/uL BMP 07/11/23 07:45 Sodium 139 Potassium 3.9 Chloride 111 H Carbon Dioxide 21 BUN 27 H Creatinine 1.42 H Glucose 193 H Calcium 7.4 L Medications Administered Home Medications Medication Instructions Recorded Confirmed Last Taken albuterol sulfate 2.5 mg/3 mL 2.5 mg continuous nebulization TID 07/09/23 07/09/23 07/09/23 (0.083 %) solution for nebulization amlodipine 5 mg tablet 5 mg PO QAM 07/09/23 07/09/23 07/09/23 amoxicillin 875 mg-potassium 1 tab PO AMHS 07/09/23 07/09/23 07/09/23 clavulanate 125 mg tablet am dose benzonatate 100 mg capsule 100 mg PO TID PRN Cough 07/09/23 07/09/23 07/09/23 calcium carbonate 600 mg-vitamin 1 tab PO BID 07/09/23 07/09/23 07/09/23 D3 20 mcg (800 unit) tablet am codeine 10 mg-guaifenesin 100 mg/5 5 ml PO Q4 PRN Cough 07/09/23 07/09/23 07/09/23 mL oral liquid diphenhydramine HCl 25 mg tablet 25 mg PO HS 07/09/23 07/09/23 07/08/23 (Allergy) fluticasone propionate 100 1 inh inhalation BID 07/09/23 07/09/23 07/09/23 mcg/actuation blister powder for am inhalation (Flovent Diskus) irbesartan 300 mg tablet 300 mg PO QAM 07/09/23 07/09/23 07/09/23 levothyroxine 112 mcg tablet 112 mcg PO DAILYBB 07/09/23 07/09/23 07/09/23 (Synthroid) linaclotide 72 mcg capsule 72 mcg PO DAILYBB 07/09/23 07/09/23 07/09/23 (Linzess) linagliptin 5 mg tablet (Tradjenta) 5 mg PO QAM 07/09/23 07/09/23 07/09/23 metformin 1,000 mg tablet 1,000 mg PO BID 07/09/23 07/09/23 07/09/23 am omeprazole 20 mg capsule,delayed 20 mg PO QAM 07/09/23 07/09/23 07/09/23 release piroxicam 20 mg capsule 20 mg PO QAM 07/09/23 07/09/23 07/09/23 prednisone 10 mg tablet 10 mg PO UD 07/09/23 07/09/23 07/09/23 apixaban 5 mg tablet 5 mg PO Q12H #60 tabs 07/10/23 Unknown Active Medications Generic Name Dose Route Start Last Admin Trade Name Lyndsey PRN Reason Stop Dose Admin Apixaban 5 mg 07/11/23 09:00 07/11/23 08:30 Apixaban 5 Mg Tablet PO 08/10/23 08:59 5 mg BID SCOTT Administration Azithromycin 250 mg 07/11/23 09:00 07/11/23 08:30 Azithromycin 250 Mg Tab PO 07/18/23 08:59 250 mg QAM SCOTT Administration Benzonatate 100 mg 07/09/23 22:11 07/11/23 13:13 Benzonatate 100 Mg Capsule PO 08/08/23 22:10 100 mg TID SCOTT Administration Calcium/Vitamin D 1 tab 07/10/23 09:00 07/11/23 08:32 Calcium 600mg + Vit D 400 Iu Tab PO 08/09/23 08:59 1 tab BID SCOTT Administration Diltiazem HCl 60 mg 07/10/23 21:00 07/11/23 13:12 Diltiazem Hcl 60 Mg Tab PO 08/09/23 20:59 60 mg TID SCOTT Administration Diphenhydramine HCl 25 mg 07/10/23 21:00 07/11/23 08:35 Diphenhydramine Capsule 25 Mg Cap PO 08/09/23 20:59 25 mg BID SCOTT Administration Fluticasone Furoate 1 puffs 07/10/23 09:00 07/11/23 08:33 Fluticasone Furoate 100mcg 14 Puffs/Inhaler INH 08/09/23 08:59 1 puffs DAILY SCOTT Administration Fluticasone Propionate 1 sprays 07/10/23 10:30 07/11/23 08:32 Fluticasone Propionate Na Spr 16 Gm Btl NA 08/09/23 10:29 1 sprays BID SCOTT Administration Guaifenesin/Codeine Phosphate 5 ml 07/09/23 22:11 07/11/23 02:22 Guaifenesin/Codeine 100mg/10mg 5ml Udc PO 08/08/23 22:10 5 ml Q4 PRN Administration Cough Insulin Aspart 0 units 07/09/23 22:11 07/11/23 12:00 Insulin Aspart Per Unit Charge SC 08/08/23 22:10 Not Given ACHS SCOTT Levothyroxine Sodium 112 mcg 07/10/23 06:30 07/11/23 05:38 Levothyroxine Sodium 112 Mcg Tablet PO 08/09/23 06:29 112 mcg DAILYBB SCOTT Administration Linaclotide 72 mcg 07/10/23 06:30 07/11/23 05:38 Linaclotide 72 Mcg Capsule PO 08/09/23 06:29 72 mcg DAILYBB SCOTT Administration Losartan Potassium 100 mg 07/10/23 09:00 07/11/23 08:31 Losartan Potassium 50 Mg Tab PO 08/09/23 08:59 100 mg QAM SCOTT Administration Pantoprazole Sodium 40 mg 07/10/23 09:00 07/11/23 08:30 Pantoprazole 40 Mg Tab PO 08/09/23 08:59 40 mg QAM SCOTT Administration Pseudoephedrine HCl 30 mg 07/10/23 14:00 07/11/23 13:12 Pseudoephedrine Hcl 30 Mg Tab PO 08/09/23 13:59 30 mg TID SCOTT Administration
[2023-07-12] MEDS: linaCLOtide 72 MCG CAPSULE PO SCH (05:59)
[2023-07-12] MEDS: LEVOTHYROXINE SODIUM 112 MCG TABLET PO SCH (05:59)
[2023-07-12 07:47] LABS: Hematocrit (blood only) 27.9 % (37.0-47.0); Hemoglobin 9.3 g/dl (12.0-16.0); Mean Corpuscular Hemoglobin 27.1 pg (25.0-34.0); Mean Corpuscular Hgb Conc 33.3 g/dL (32.0-36.0); Mean Corpuscular Volume 81.3 fL (80.0-100.0); Nucleated RBC # (auto) 0.04 K/uL (0.00-0.12); Nucleated RBC % (auto) 0.2 %; Platelet Count 427 K/uL (130-400); RDW Coefficient of Variation 16.7 % (11.5-14.5); RDW Standard Deviation 48.7 fL (36.4-46.3); Red Blood Count 3.43 M/uL (4.20-5.40); White Blood Count 18.98 K/ul (4.8-10.8)
[2023-07-12 08:14] LABS: Calcium 7.1 mg/dl (8.6-10.3); Creatinine Clr Calc Pharmacy 39.2 ml/min; Est GFR (African American) 47.8 ml/min; Est GFR (Non-African American) 41.2 ml/min; Magnesium 1.7 mg/dl (1.7-2.4); Phosphorus 4.1 mg/dl (2.5-4.9); Potassium 3.5 mmol/L (3.5-5.1)
[2023-07-12] MEDS: FLUTICASONE FUROATE 100MCG 14 PUFFS/INHALER INH SCH (08:16)
[2023-07-12] MEDS: FLUTICASONE PROPIONATE NA SPR 16 GM BTL SCH (08:16)
[2023-07-12] MEDS: AZITHROMYCIN 250 MG TAB PO SCH (08:17)
[2023-07-12] MEDS: PANTOprazole 40 MG TAB PO SCH (08:17)
[2023-07-12] MEDS: APIXABAN 5 MG TABLET PO SCH (08:17)
[2023-07-12] MEDS: CALCIUM 600MG + VIT D 400 IU TAB PO SCH (08:17)
[2023-07-12] MEDS: LOSARTAN POTASSIUM 50 MG TAB PO SCH (08:17)
[2023-07-12] MEDS: BENZONATATE 100 MG CAPSULE PO SCH (08:17)
[2023-07-12] MEDS: PSEUDOEPHEDRINE HCL 30 MG TAB PO SCH (08:17)
[2023-07-12] MEDS: INSULIN ASPART PER UNIT CHARGE SC SCH ×2 (08:20→12:35)
[2023-07-12] MEDS: diphenhydrAMINE Capsule 25 MG CAP PO SCH (08:24)
[2023-07-12] MEDS ORDERED: FERROUS SULFATE 325 MG TAB PO SCH (09:00)
[2023-07-12] MEDS ORDERED: dilTIAZem HCL 180 MG CAPCR PO SCH (09:00)
--- NOTE | 2023-07-12 16:26 | Discharge Summary ---
Discharge Summary Date of Service July 12, 2023 Notes For Next Care Provider Medication Changes From Visit -Eliquis 5mg BID -Diltazem 180mg daily -Flonase -Furosemide 20mg prn edema -Azithromycin 250mg x4 more days -Ferrous Sulfate 325mg daily Admission HPI Per Admitting Provider 77-year-old female with past medical history significant for type 2 diabetes, postprocedural hypothyroidism, postprocedural hypoparathyroidism, mixed hyperlipidemia, hypertension ,GERD ,chronic kidney disease stage III, history of peptic ulcer disease presents with shortness of breath and cough and also found to be in rapid A-fib. Patient is having cough going for last 2 weeks and had outpatient steroids and antibiotics but is not getting better and came to the ER. Having dry cough. Denies any chest pain. Denies any palpitations. Denies fevers. Appetite is okay. No difficulty swallowing. No nausea vomiting. No abdominal pain. No diarrhea. No blood in the stools or black sto ols. No hematuria. Normal bladder movements. Has some headache. No blurred visions. Has some sore throat from dryness. Past medical history. As mentioned above Past surgical history. EGD. Removal of thyroid gland. Cholecystectomy. Total abdominal hysterectomy with bilateral salpingo-oophorectomy. Social history. Quit smoking in 1995. Alcohol socially. No drug use Family history. Brother had pacemaker. Father had lung cancer. Mother had hypertension, dementia. Sister had stroke Admission Exam Per Admitting Provider General- not in distress. Head- atraumatic Eyes- PERRL. ENT- oropharynx clear Neck- supple, no JVD. Lungs- clear to auscultation,mild b/l rhonchi Heart- irregular rhythm; tachycardia, no murmur, no gallop. Abdomen- normal bowel sounds, soft, nontender, no distension. Extremities- no pretibial edema, no erythema seen. Neuro- alert, oriented x 3; PERRL, no facial palsy; no dysarthria; moves extremities. Skin- warm & dry Principal Dx & Hospital Course #1 = Principal Diagnosis (1) COPD exacerbation: 77-year-old female with past medical history significant for type 2 diabetes, postprocedural hypothyroidism, thyroid cancer s/p thyroidectomy c/b postprocedural hypoparathyroidism, mixed hyperlipidemia, hypertension ,GERD ,chronic kidney disease stage III, history of peptic ulcer disease presents with shortness of breath and cough and also found to be in rapid A-fib. Patient transitioned off of IV diltiazem and to PO in morning.Additionally, patient placed on eliquis. Cost is approximately 133$ a month, but with coupon will be free this month. Patient is in "hole" with insurance, therefore cost will likely improve at the beginning of the year. Patient willing to incur cost at this point until she is out of "hole." Regarding her breathing, encouraged her to use prn nebs, but suspect more fluid contributing to symptoms.Patient noted significant improvement with IV lasix. PLan to discharge to day with close follow up with Cards and PCP. On day of discharge, patient was tolerating diet, ambulating, and denied any wheezing/chest pain./or other acute symptoms. #Upper airway cough syndrome, iso viral URI #Acute bronchitis with entero/rhinovirus Home inhaler: flovent, albuterol; no formal PFTs Failed OP prednisone therapy, Augmentin Discontinue with IV Solu-Medrol 40 mg and reduced nebs prn Continue ICS inhaler prn Consult Pulmonary: suspicious for UACS 2/2 vial infection, follow up pulm for formal COPD eval (pfts etc) -Azithromycin course given prolonged illness, complete course -Continue sympotmatic management #New onset Rapid A-fib [id number] (77, female, HTN, DM) Converted with Diltazem Started on Diltiazem 180mg daily Started on Eliquis BID Furosemide 20mg prn for edema #Leukocytosis Patient looks notably better clinically--recieved q8h solumedrol 07/10, downtrending appropriately #type 2 diabetes Resume home p.o. medications #Hypothyroidism s/p thyroidectomy #Prior thyroid cancer, 2006 Goal TSH <0.1, at goal; follows endocrinology On Synthroid #Hypertension On amlodipine, Resume irbesartan #Iron Deficiceny Anemia Continue ferrous sulfate daily #ANABELL Completed sleep study on 07/07 IMPRESSION AND PLAN: Rnlzfdsb-hi-feefiz obstructive sleep apnea syndromewith an AHI of 5 events per hour, which increased to 50 during REM sleepassociated with significant desaturation. I will discuss the result of this test and treatment options with the patient in next clinic visit. -Sleep appointment in future for CPAP DVT eliquis Disposition telemetry floor Full code Discharge Exam Constitutional WD/WN, vitals as above Cardiovascular RRR, no murmur, no edema Chest (Breasts) normal inspection/palpation of breasts Updated Medication List Medication Instructions Recorded Confirmed Type albuterol sulfate 2.5 mg/3 mL 2.5 mg continuous nebulization TID 07/09/23 07/09/23 History (0.083 %) solution for nebulization amlodipine 5 mg tablet 5 mg PO QAM 07/09/23 07/09/23 History benzonatate 100 mg capsule 100 mg PO TID PRN Cough 07/09/23 07/09/23 History calcium carbonate 600 mg-vitamin 1 tab PO BID 07/09/23 07/09/23 History D3 20 mcg (800 unit) tablet codeine 10 mg-guaifenesin 100 mg/5 5 ml PO Q4 PRN Cough 07/09/23 07/09/23 Histo ry mL oral liquid diphenhydramine HCl 25 mg tablet 25 mg PO HS 07/09/23 07/09/23 History (Allergy) fluticasone propionate 100 1 inh inhalation BID 07/09/23 07/09/23 History mcg/actuation blister powder for inhalation (Flovent Diskus) irbesartan 300 mg tablet 300 mg PO QAM 07/09/23 07/09/23 History levothyroxine 112 mcg tablet 112 mcg PO DAILYBB 07/09/23 07/09/23 History (Synthroid) linaclotide 72 mcg capsule 72 mcg PO DAILYBB 07/09/23 07/09/23 History (Linzess) linagliptin 5 mg tablet (Tradjenta) 5 mg PO QAM 07/09/23 07/09/23 History metformin 1,000 mg tablet 1,000 mg PO BID 07/09/23 07/09/23 History omeprazole 20 mg capsule,delayed 20 mg PO QAM 07/09/23 07/09/23 History release piroxicam 20 mg capsule 20 mg PO QAM 07/09/23 07/09/23 History prednisone 10 mg tablet 10 mg PO UD 07/09/23 07/09/23 History apixaban 5 mg tablet 5 mg PO Q12H #60 tabs 07/10/23 Rx azithromycin 250 mg tablet 250 mg PO QAM #4 tabs 07/12/23 Rx diltiazem HCl 180 mg 180 mg PO DAILY #30 caps 07/12/23 Rx capsule,extended release 24 hr, controlled (DILT-XR) ferrous sulfate 325 mg (65 mg 325 mg PO QAM #30 tabs 07/12/23 Rx iron) tablet,delayed release fluticasone propionate 50 1 spray NA BID 30 days #25 grams 07/12/23 Rx mcg/actuation nasal spray,suspension furosemide 20 mg tablet 20 mg PO DAILY PRN edema #14 tabs 07/12/23 Rx Hospital Stay Data Consultations 07/09/23 19:29 ED Decision to Admit Stat 07/10/23 08:00 Consult Cardiology Routine 07/10/23 08:39 Consult Pulmonology Routine Pending Results Patient Have Any Pending Studies at Discharge: No Discharge Instructions Given to Patient (Per Discharging Provider) You were admitted for cough and ongoing shortness of breath. There was concern for COPD exacerbation, however, Pulmonology felt that this was less likely the case given symptoms and suspects "Upper airway cough syndrome" This is a cough that can last weeks and can be exacerbated by multiple triggers (viral, seasonal, etc) You were also found to be in atrial fibrillation, or an abnormal rhythm, in addition to a very fast heart rate. #Upper airway cough syndrome, iso viral URI #Acute bronchitis with entero/rhinovirus Continue home inhalers as needed Will arrange outpatient Pulmonary follow up for formal COPD evaluation -Azithromycin course: 4 more days remaining, your next dose will be 07/13 in the morning -Continue symptomatic control with tessalon pearls and cough syrups -Continue Benadryl; consider Loratadine (Claritin) for a similar medication, found over the counter and with less sedative properties #New onset Rapid A-fib, now converted to normal rhythm -Continue Eliquis 5mg twice a day (blood thinner) -Continue Diltazem 180mg daily to keep heart rate stable #Hypothyroidism s/p thyroidectomy #Prior thyroid cancer, 2006 Goal TSH <0.1, at goal; follows endocrinology Continue synthroid #Hypertension Continue home medications #Anemia Hemoglobin 10.1 Start Iron supplement daily, follow up with PCP #ANABELL Completed sleep study on 07/07 "IMPRESSION AND PLAN: [id number] obstructive sleep apnea syndromewith an AHI of 5 events per hour, which increased to 50 during REM sleepassociated with significant desaturation. I will discuss the result of this test and treatment options with the patient in next clinic visit." -Follow up with Sleep Study Appointment Total Time Total Time Spent Total Time Spent (In Minutes): 45
--- NOTE | 2023-07-18 10:43 | Coding Query ---
CODING QUERY To promote full compliance with coding requirements relating to patient care, provider participation is requested in all cases of field coil winder uncertainty. Please assist us with the question(s) below: Please clarify the meaning of YVONNE. YVONNE is not a valid abbreviation. Thank you. ( x ) Acute Kidney Injury ( ) Acute Kidney Insufficiency ( ) Other (Specify): Principal Diagnosis: "that condition established after study, to be chiefly responsible for occasioning the admission of the patient to the hospital for care." Co-Existing Principal Diagnosis: "when two or more diagnoses equally meet the criteria for principal diagnosis as determined by the circumstances of admission, diagnostic work up, and/or therapy provided, and the Alphabetic Index, Tabular List, or another coding guideline does not provide sequencing direction, any one of the diagnoses may be sequenced first." "When the physician has documented what appears to be a current diagnosis in the body of the record, but has not included the diagnosis in the final diagnostic statement, the physician should be asked whether the diagnosis should be added." (Source Coding [facility] 2 QTR90. p3-4) HEATHER
== END 2023-07-12 13:59 | disposition home or self-care (01) | DRG 202 ==
LOC: ED 16:57 → 2S 20:42